=== PATIENT | male | born 2000 | race Two or more races ===

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

== ENCOUNTER 2021-12-27 12:55 | Emergency (ER) | payer MEDICAID ==
[~2021-12-27] VITALS: Ht 172.7 cm; Wt 63.5 kg
[~2021-12-27 12:55] MED LIST: DIVA500T2 PO
[2021-12-27] MEDS ORDERED: SODIUM CHLORIDE 0.9% 1,000 ML IVB ONE (13:15)
[2021-12-27 13:52] LABS: Basophils # (auto) 0.1 10 ^3/uL (0-0.2); Basophils % (auto) 1.8 % (0.0-2.0); Eosinophils # (auto) 0 10 ^3/uL (0-0.8); Eosinophils % (auto) 0.1 % (0.0-7.0); Hematocrit 40.6 % (41.0-53.0); Hemoglobin 14.2 g/dL (13.5-17.5); Lymphocytes # (auto) 0.9 10 ^3/uL (0.4-5.4); Lymphocytes % (auto) 12.1 % (10.0-50.0); Mean Corpuscular Hemoglobin 28.3 pg (28.0-32.0); Mean Corpuscular Volume 80.8 fL (80.0-100.0); Monocytes # (auto) 0.5 10 ^3/uL (0-1.3); Monocytes % (auto) 7.4 % (0.0-12.0); Neutrophils # (auto) 5.6 10 ^3/uL (1.6-8.6); Neutrophils % (auto) 78.6 % (37.0-80.0); Nucleated Red Blood Cells % 0.1 %; Red Blood Cells 5.03 10^6/uL (4.5-5.90); Red Cell Distribution Width 14.2 % (11.8-14.3); White Blood Cell 7.1 10^3/uL (4.4-10.8)
[2021-12-27 14:15] LABS: Alanine Aminotransferase 15 U/L (16-61); Anion Gap 7 (5-15); Aspartate Aminotransferase 22 U/L (15-37); BUN/Creatinine Ratio 3.9; Blood Urea Nitrogen 4 mg/dL (7-18); Calcium 8.6 mg/dL (8.5-10.1); Carbon Dioxide 28 mmol/L (21-32); Chloride 107 mmol/L (98-107); GFR African American 119 mL/min; GFR Non-African American 98 mL/min; Glucose 85 mg/dL (74-106); Potassium 3.7 mmol/L (3.5-5.1); Sodium 142 mmol/L (136-145)
[2021-12-27 14:18] LABS: Alkaline Phosphatase 56 U/L (45-117); Bilirubin, Total 0.9 mg/dL (0.2-1.0); Total Protein 7.6 g/dL (6.4-8.2)
[2021-12-27 14:19] LABS: Blood Alcohol < 3.0 mg/dL (0-5)
[2021-12-27 14:39] VITALS: BP 110/76
[2021-12-27] MEDS ORDERED: DIVA500T2 PO (14:47)
== END 2021-12-27 15:02 | disposition home or self-care (01) ==
LOC: EDUNIT# 12:55 → ER 12:55 → EDBD 12:55 → ER 15:02
DX: G40.909 Epilepsy, unspecified, not intractable, without status epilepticus (principal); R51.9 Headache, unspecified
CPT/HCPCS: 36415; 70450; 80053; 80320; 85025; 93005; 96360; 99285; J7030

== ENCOUNTER 2024-04-11 12:08 | Inpatient (IN) | payer MEDICAID, OTHER ==
[~2024-04-11] VITALS: Ht 175.3 cm; Wt 73.5 kg
[~2024-04-11 12:08] MED LIST changes: +DIVA-91 PO; -DIVA500T2 PO
[2024-04-11] MEDS: SODIUM CHLORIDE 0.9% 1,000 ML IV ONE (13:05)
[2024-04-11] MEDS: levETIRAcetam 1000 mg/100ml 100 ML IV ONE (13:05)
[2024-04-11 13:56] LABS: Basophils # (auto) 0.1 10 ^3/uL (0-0.2); Basophils % (auto) 0.8 % (0.0-2.0); Eosinophils # (auto) 0.1 10 ^3/uL (0-0.8); Eosinophils % (auto) 0.6 % (0.0-7.0); Hematocrit 44.8 % (41.0-53.0); Hemoglobin 15.5 g/dL (13.5-17.5); Lymphocytes # (auto) 1.4 10 ^3/uL (0.4-5.4); Lymphocytes % (auto) 9.4 % (10.0-50.0); Mean Corpuscular Hemoglobin 30.3 pg (28.0-32.0); Mean Corpuscular Hgb Conc. 34.5 g/dL (32.0-36.0); Mean Corpuscular Volume 87.7 fL (80.0-100.0); Monocytes # (auto) 0.7 10 ^3/uL (0-1.3); Monocytes % (auto) 4.4 % (0.0-12.0); Neutrophils # (auto) 12.7 10 ^3/uL (1.6-8.6); Neutrophils % (auto) 84.8 % (37.0-80.0); Nucleated Red Blood Cells % 0.1 %; Platelet Count (auto) 297 10^3/uL (140-450); Red Blood Cells 5.11 10^6/uL (4.5-5.90); Red Cell Distribution Width 14.5 % (11.8-14.3); White Blood Cell 14.9 10^3/uL (4.4-10.8)
[2024-04-11 13:59] LABS: Chloride 107 mmol/L (98-107); Potassium 4.2 mmol/L (3.5-5.1); Sodium 140 mmol/L (136-145)
[2024-04-11 14:00] LABS: Anion Gap 6 (5-15); Carbon Dioxide 27 mmol/L (20-30)
[2024-04-11 14:01] LABS: Calcium 8.8 mg/dL (8.7-10.4)
[2024-04-11 14:05] LABS: Glucose 96 mg/dL (74-106)
[2024-04-11 14:06] LABS: BUN/Creatinine Ratio 11.8 (10.0-20.0); Blood Urea Nitrogen 10 mg/dL (9-23)
[2024-04-11] MEDS ORDERED: ONDANSETRON HCL 4 MG/2 ML VIAL IV PRN (15:30)
[2024-04-11] MEDS ORDERED: LORazepam 2MG/ML-1ML VIAL IV PRN (15:30)
[2024-04-11 17:41] VITALS: BP 123/87; PULSE 77; RESP 16; TEMP 97.4; O2SAT 97
[2024-04-11 20:00] VITALS: PULSE 71; RESP 18; O2SAT 98
[2024-04-11] MEDS: levETIRAcetam 500 MG TAB PO SCH (20:59)
[2024-04-11 21:00] VITALS: BP 124/80; PULSE 71; RESP 18; TEMP 98.2; O2SAT 98
[2024-04-11] MEDS: ACETAMINOPHEN 325 MG TAB PO PRN (21:08)
[2024-04-12 05:00] VITALS: BP 110/74; PULSE 70; RESP 16; TEMP 97.9; O2SAT 100
[2024-04-12 06:15] LABS: Chloride 104 mmol/L (98-107); Potassium 4.2 mmol/L (3.5-5.1); Sodium 137 mmol/L (136-145)
[2024-04-12 06:16] LABS: Anion Gap 4 (5-15); Carbon Dioxide 29 mmol/L (20-30)
[2024-04-12 06:17] LABS: Calcium 9.1 mg/dL (8.7-10.4)
[2024-04-12 06:21] LABS: BUN/Creatinine Ratio 9.7 (10.0-20.0); Blood Urea Nitrogen 9 mg/dL (9-23); Glucose 110 mg/dL (74-106)
[2024-04-12 07:40] LABS: Basophils # (auto) 0.1 10 ^3/uL (0-0.2); Basophils % (auto) 1.1 % (0.0-2.0); Eosinophils # (auto) 0.2 10 ^3/uL (0-0.8); Eosinophils % (auto) 2.3 % (0.0-7.0); Hematocrit 44.9 % (41.0-53.0); Hemoglobin 15.3 g/dL (13.5-17.5); Lymphocytes # (auto) 2.2 10 ^3/uL (0.4-5.4); Lymphocytes % (auto) 22.3 % (10.0-50.0); Mean Corpuscular Hemoglobin 30.2 pg (28.0-32.0); Mean Corpuscular Volume 88.9 fL (80.0-100.0); Monocytes # (auto) 0.6 10 ^3/uL (0-1.3); Monocytes % (auto) 6.5 % (0.0-12.0); Neutrophils # (auto) 6.8 10 ^3/uL (1.6-8.6); Neutrophils % (auto) 67.8 % (37.0-80.0); Nucleated Red Blood Cells % 0.1 %; Platelet Count (auto) 305 10^3/uL (140-450); Red Blood Cells 5.06 10^6/uL (4.5-5.90); Red Cell Distribution Width 14.6 % (11.8-14.3)
[2024-04-12 09:00] VITALS: BP 122/84; PULSE 85; RESP 18; TEMP 98.5; O2SAT 99
[2024-04-12 13:00] VITALS: BP 118/75; PULSE 86; RESP 20; TEMP 97.8; O2SAT 94
[2024-04-12 17:13] VITALS: BP 119/79; PULSE 63; RESP 20; TEMP 98; O2SAT 98
[2024-04-12 21:00] VITALS: BP 127/95; PULSE 97; RESP 20; TEMP 98.2; O2SAT 95
[2024-04-13 01:00] VITALS: BP 133/69; PULSE 80; RESP 20; TEMP 98.1; O2SAT 95
[2024-04-13 05:00] VITALS: BP 129/54; PULSE 57; RESP 20; TEMP 97.4; O2SAT 99
[2024-04-13 05:53] LABS: Urine Bacteria None Seen /hpf (None Seen)
[2024-04-13 06:05] LABS: Urine Blood Negative /uL (Negative); Urine Clarity Clear (Clear); Urine Color Light-Yellow (Yellow); Urine Protein, UAD Negative (Negative); Urine Specific Gravity 1.014 (1.001-1.035); Urine Urobilinogen Normal (Negative); Urine WBC 2 /hpf (0 - 3)
[2024-04-13 06:22] LABS: Basophils # (auto) 0 10 ^3/uL (0-0.2); Basophils % (auto) 0.5 % (0.0-2.0); Eosinophils # (auto) 0.2 10 ^3/uL (0-0.8); Eosinophils % (auto) 2.2 % (0.0-7.0); Hematocrit 45.9 % (41.0-53.0); Hemoglobin 15.9 g/dL (13.5-17.5); Mean Corpuscular Hemoglobin 30.2 pg (28.0-32.0); Mean Corpuscular Hgb Conc. 34.7 g/dL (32.0-36.0); Mean Corpuscular Volume 87.1 fL (80.0-100.0); Monocytes # (auto) 0.7 10 ^3/uL (0-1.3); Monocytes % (auto) 7.5 % (0.0-12.0); Neutrophils % (auto) 67.8 % (37.0-80.0); Nucleated Red Blood Cells % 0.1 %; Platelet Count (auto) 307 10^3/uL (140-450); Red Blood Cells 5.27 10^6/uL (4.5-5.90); Red Cell Distribution Width 14.3 % (11.8-14.3); White Blood Cell 8.9 10^3/uL (4.4-10.8)
[2024-04-13 06:26] LABS: Amphetamine Screen, Urine Neg (NEGATIVE); Barbiturate Scree,Urine Neg (NEGATIVE); Benzodiazephine Screen, Urine Neg (NEGATIVE); Cocaine Screen, Urine Neg (NEGATIVE)
[2024-04-13 06:29] LABS: Opiate Scree,Urine Neg (NEGATIVE)
[2024-04-13 06:30] LABS: Cannabinoid Screen, Urine Pos (NEGATIVE); Phencyclidine Screen, Urine Neg (NEGATIVE)
[2024-04-13 06:31] LABS: Anion Gap 5 (5-15); Carbon Dioxide 28 mmol/L (20-30); Chloride 103 mmol/L (98-107); Potassium 4.1 mmol/L (3.5-5.1); Sodium 136 mmol/L (136-145)
[2024-04-13 06:33] LABS: Calcium 9.6 mg/dL (8.7-10.4)
[2024-04-13 06:37] LABS: BUN/Creatinine Ratio 9.8 (10.0-20.0); Blood Urea Nitrogen 8 mg/dL (9-23); Glucose 89 mg/dL (74-106)
[2024-04-13 10:24] VITALS: BP 117/75; PULSE 69; RESP 16; TEMP 98.2; O2SAT 98
[2024-04-13] MEDS ORDERED: LEVE500T40 PO (12:36)
[2024-04-13 13:15] VITALS: BP 124/67; PULSE 61; RESP 16; TEMP 98.1; O2SAT 98
[2024-04-13 13:38] VITALS: BP 124/67; PULSE 61; RESP 16; TEMP 98.1; O2SAT 98
== END 2024-04-13 15:08 | disposition home or self-care (01) | DRG 53 ==
LOC: EDBD 12:08 → ER 12:08 → OVERFLOW 15:37 → TELE-E-ADS 17:47
PROVIDERS: ADMIT Family Medicine; ATTEND Internal Medicine Geriatric Medicine
DX: G40.409 Other generalized epilepsy and epileptic syndromes, not intractable, without status epilepticus (principal); F12.10 Cannabis abuse, uncomplicated; R32 Unspecified urinary incontinence; Z91.128 Patient's intentional underdosing of medication regimen for other reason; Z91.199 Patient's noncompliance with other medical treatment and regimen due to unspecified reason; Z71.51 Drug abuse counseling and surveillance of drug abuser
CPT/HCPCS: 36415; 70450; 80048; 80307; 81001; 82306; 82607; 84146; 85025; 87081; 96365; 99291; G0378

== ENCOUNTER 2024-05-26 13:13 | Emergency (ER) | payer OTHER ==
[~2024-05-26] VITALS: Ht 180.3 cm; Wt 77.2 kg
[~2024-05-26 13:13] MED LIST changes: -DIVA-91 PO; +LEVE500T40 PO
[2024-05-26 13:49] VITALS: RESP 16
[2024-05-26 14:53] LABS: Basophils # (auto) 0.1 10 ^3/uL (0-0.2); Basophils % (auto) 1.2 % (0.0-2.0); Eosinophils # (auto) 0.3 10 ^3/uL (0-0.8); Eosinophils % (auto) 3.7 % (0.0-7.0); Hematocrit 46.2 % (41.0-53.0); Hemoglobin 16.2 g/dL (13.5-17.5); Lymphocytes # (auto) 1.6 10 ^3/uL (0.4-5.4); Lymphocytes % (auto) 20.7 % (10.0-50.0); Mean Corpuscular Hemoglobin 30.5 pg (28.0-32.0); Mean Corpuscular Hgb Conc. 35.1 g/dL (32.0-36.0); Mean Corpuscular Volume 86.7 fL (80.0-100.0); Monocytes # (auto) 0.6 10 ^3/uL (0-1.3); Monocytes % (auto) 7.7 % (0.0-12.0); Neutrophils # (auto) 5.2 10 ^3/uL (1.6-8.6); Neutrophils % (auto) 66.7 % (37.0-80.0); Nucleated Red Blood Cells % 0.2 %; Platelet Count (auto) 380 10^3/uL (140-450); Red Blood Cells 5.33 10^6/uL (4.5-5.90); Red Cell Distribution Width 14.3 % (11.8-14.3); White Blood Cell 7.8 10^3/uL (4.4-10.8)
[2024-05-26 15:00] VITALS: PULSE 76; RESP 11; O2SAT 95
[2024-05-26 15:05] LABS: Chloride 103 mmol/L (98-107); Potassium 3.3 mmol/L (3.5-5.1); Sodium 140 mmol/L (136-145)
[2024-05-26 15:06] LABS: Anion Gap 12 (5-15); Calcium 9.8 mg/dL (8.7-10.4); Carbon Dioxide 25 mmol/L (20-31)
[2024-05-26 15:11] LABS: Blood Alcohol 140.8 mg/dL (<10); Glucose 84 mg/dL (74-106)
[2024-05-26 15:12] LABS: BUN/Creatinine Ratio 5.7 (10.0-20.0); Blood Urea Nitrogen < 5 mg/dL (9-23)
[2024-05-26] MEDS: LORazepam 2MG/ML-1ML VIAL IV ONE (15:30)
[2024-05-26 16:00] VITALS: BP 117/75; PULSE 88; RESP 16; O2SAT 94
== END 2024-05-26 18:10 | disposition home or self-care (01) ==
LOC: ER 13:16
DX: R56.9 Unspecified convulsions (principal)
CPT/HCPCS: 36415; 70450; 80048; 80320; 82962; 85025; 96374; 99285; J2060; 99291

== ENCOUNTER 2024-06-16 13:34 | Emergency (ER) | payer OTHER ==
[~2024-06-16] VITALS: Ht 180.3 cm; Wt 73.0 kg
[2024-06-16 13:37] VITALS: BP 140/97; PULSE 100; RESP 18; O2SAT 96
[2024-06-16 14:13] LABS: Basophils # (auto) 0.1 10 ^3/uL (0-0.2); Basophils % (auto) 0.7 % (0.0-2.0); Eosinophils # (auto) 0.1 10 ^3/uL (0-0.8); Eosinophils % (auto) 0.9 % (0.0-7.0); Hematocrit 50.6 % (41.0-53.0); Lymphocytes # (auto) 1.6 10 ^3/uL (0.4-5.4); Lymphocytes % (auto) 13.7 % (10.0-50.0); Mean Corpuscular Hemoglobin 29.4 pg (28.0-32.0); Mean Corpuscular Hgb Conc. 33.7 g/dL (32.0-36.0); Mean Corpuscular Volume 87.4 fL (80.0-100.0); Monocytes # (auto) 0.7 10 ^3/uL (0-1.3); Monocytes % (auto) 6.1 % (0.0-12.0); Neutrophils # (auto) 9.1 10 ^3/uL (1.6-8.6); Neutrophils % (auto) 78.6 % (37.0-80.0); Platelet Count (auto) 395 10^3/uL (140-450); Red Blood Cells 5.79 10^6/uL (4.5-5.90); Red Cell Distribution Width 14.3 % (11.8-14.3); White Blood Cell 11.5 10^3/uL (4.4-10.8)
[2024-06-16] MEDS: levETIRAcetam 1000 mg/100ml 100 ML IV ONE (14:25)
[2024-06-16] MEDS: SODIUM CHLORIDE 0.9% 1,000 ML IV ONE (14:25)
[2024-06-16] MEDS: ONDANSETRON HCL 4 MG/2 ML VIAL IV ONE (14:25)
[2024-06-16 14:31] LABS: Alanine Aminotransferase 30 U/L (7-40); Alkaline Phosphatase 85 U/L (46-116); Anion Gap 10 (5-15); Aspartate Aminotransferase 47 U/L (13-40); Blood Alcohol < 3.0 mg/dL (<10); Calcium 9.9 mg/dL (8.7-10.4); Carbon Dioxide 23 mmol/L (20-31); Chloride 105 mmol/L (98-107); Glucose 114 mg/dL (74-106); Potassium 4.1 mmol/L (3.5-5.1); Sodium 138 mmol/L (136-145)
[2024-06-16 14:32] LABS: Albumin 4.8 g/dL (3.2-4.8); Bilirubin, Total 0.8 mg/dL (0.2-1.0); Total Protein 8.2 g/dL (5.7-8.2)
[2024-06-16 15:04] LABS: BUN/Creatinine Ratio 5.2 (10.0-20.0); Blood Urea Nitrogen < 5 mg/dL (9-23)
== END 2024-06-16 17:37 | disposition home or self-care (01) ==
LOC: ER 13:34
DX: G40.909 Epilepsy, unspecified, not intractable, without status epilepticus (principal); F10.10 Alcohol abuse, uncomplicated; R42 Dizziness and giddiness; R53.1 Weakness
CPT/HCPCS: 36415; 80053; 80320; 82542; 85025; 96365; 96375; 99284; J1953; J2405; J7030

== ENCOUNTER 2024-06-23 20:35 | Emergency (ER) | payer OTHER ==
[~2024-06-23] VITALS: Ht 180.3 cm; Wt 73.0 kg
--- NOTE | 2024-06-23 21:08 | ED.PDOC ---
Back pain HPI HPI Comments 23-year-old male presents to ER with complaints of ribcage pain x2 days. Patient reports he started experiencing bilateral upper/lower ribcage pain two days ago s/p "getting tackled while playing football". Denies head injury/LOC. Rates his current pain a 10/10 to bilateral upper and lower ribcage and notes he has been taking ibuprofen for his pain with slight relief. Patient presents to ER ambulatory on arrival, with steady gait, in no distress and states his pain is worse with movement and better with rest. Denies shortness of breath, nausea/vomiting, chest pain, abdominal pain or any further symptoms/complaints Chief Complaint: Rib Pain Time Seen by MD: 20:49 Primary Care Provider: NONE Reviewed Notes: Nurses Notes, Medications, Allergies Allergies: Coded Allergies: NO KNOWN ALLERGIES (Unverified , 12/04/16) Home Meds Active Scripts Ibuprofen (Ibuprofen) 800 Mg Tab, 1 TAB PO TID PRN, #30 TAB 0 Refills Prov:MILTON URENA 06/23/24 Levetiracetam (Keppra) 500 Mg Tab, 1000 MG PO BID for 30 Days, #120 TAB Prov:MARIA DEL CARMEN PINEDO 04/13/24 Information Source: Patient Mode of Arrival: Ambulatory Past Medical History PAST MEDICAL HISTORY: Seizures Surgical History: Denies all surgeries Family History Family History (Other): Seizures Social History Smoker: Non-Smoker Alcohol: Occasionally Drugs: Marijuana Lives In: Home Constitutional: denies: chills, diaphoresis, fatigue, fever, malaise, sweats, weakness, others EENTM: denies: blurred vision, double vision, ear bleeding, ear discharge, ear drainage, ear pain, ear ringing, eye pain, eye redness, hearing loss, mouth pain, mouth swelling, nasal discharge, nose bleeding, nose congestion, nose pain, photophobia, tearing, throat pain, throat swelling, voice changes, others Respiratory: denies: cough, hemoptysis, orthopnea, SOB at rest, shortness of breath, SOB with excertion, stridor, wheezing, others Cardiovascular: denies: chest pain, dizzy spells, diaphoresis, Dyspnea on exertion, edema, irregular heart beat, left arm pain, lightheadedness, palpitations, PND, syncope, others Gastrointestinal: denies: abdomen distended, abdominal pain, blood streaked bowels, constipated, diarrhea, dysphagia, difficulty swallowing, hematemesis, melena, nausea, poor appetite, poor fluid intake, rectal bleeding, rectal pain, vomiting, others Genitourinary: denies: burning, dysuria, flank pain, frequency, hematuria, incontinence, penile discharge, penile sore, pain, testicle pain, testicle swelling, urgency, others Neurological: denies: dizziness, fainting, headache, left sided numbness, left sided weakness, numbness, paresthesia, pre-existing deficit, right sided numbness, right sided weakness, seizure, speech problems, tingling, tremors, weakness, others Musculoskeletal: reports: others (As stated in HPI) Integumetry: denies: bruises, change in color, change in hair/nails, dryness, laceration, lesions, lumps, rash, wounds, others Allergic/Immunocompromised: denies: Difficulty Healing, Frequent Infections, Hives, Itching, others Hematologic/Lymphatic: denies: anemia, blood clots, easy bleeding, easy bruising, swollen glands, others Endocrine: denies: excessive hunger, excessive sweating, excessive thirst, excessive urination, flushing, intolerance to cold, intolerance to heat, unexplained weight gain, unexplained weight loss, others Psychiatric: denies: anxiety, bipolar disorder, depression, hopeless, panic disorder, schizophrenia, sleepless, suicidal, others Physical Exam General Appearance: No Apparent Distress HEENT: Normal ENT Inspection, PERRL/EOMI, Pharynx Normal, TMs Normal Neck: Full Range of Motion, Non-Tender, Normal, Normal Inspection Respiratory: Decreased Breath Sounds, Lungs Clear, No Accessory Muscle Use, No Respiratory Distress, Normal Breath Sounds, Other (Slight TTP to bilateral upper rib cage and bilateral lower posterior ribcage noted. Small abrasion also noted to substernal chest wall. No further skin changes noted) Cardiovascular: No Murmur, No Gallop, Regular Rate/Rhythm Breast Exam: Deferred Gastrointestinal: Non Tender, No Pulsatile Mass, Soft Genitalia: Deferred Pelvic: Deferred Rectal: Deferred Extremities: Normal capillary refill, Normal range of motion Neurologic: Alert, wharf operator II-XII nml as Tested, No Motor Deficits, Normal Affect, Normal Mood, No Sensory Deficits Cerebellar Function: Normal Reflexes: Normal Skin: Dry, Warm Peripheral Pulses: 2+ Radial (R), 2+ Radial (L), 2+ Brachial (R), 2+ Brachial (L) Lymphatic: No Adenopathy Was a procedure done? Was a procedure done?: No Sedation Sedation?: No Back Pain Differential Dx Differential Diagnosis: AAA, Fracture, Other (Pneumothorax, [place]) X-Ray, Labs, Meds, VS Vital Signs Date Time Temp Pulse Resp B/P (MAP) Pulse Ox O2 Delivery O2 Flow Rate FiO2 06/23/24 21:10 86 16 98 Room Air 06/23/24 21:10 98.5 85 16 137/94 (108) 98 98.5 06/23/24 20:48 98.5 85 19 164/94 (117) 100 Current Medications Medications (Trade) Dose Ordered Sig/[place] Route Start Time Stop Time Status Last Admin Ketorolac Tromethamine (Toradol Injection) 60 mg ONCE ONCE IM 06/23/24 21:15 06/23/24 21:16 DC 06/23/24 21:28 PATIENT: TIM CRUZ MACCT: [id number]: [id number] : 2000 LOC: ER ROOM / BED: / AGE / SEX: 23 / M ADM STATUS: REG ER SERVICE 04 ORDERING PHYSICIAN: MILTON URENA PROCEDURE(s): CXR2 - CHEST TWO VIEWS ROUTINE REASON: bilateral rib cage pain ORDER NUMBER(s): [id number], ACCESSION NUMBER(s): [id number] XY CHEST TWO VIEWS ROUTINE CLINICAL HISTORY: bilateral rib cage pain COMPARISON: None TECHNIQUE: Frontal and lateral view of the chest was obtained FINDINGS: Lines and Tubes: None Lungs: No focal consolidation. Pleura: No effusion. No pneumothorax. Cardiomediastinal contours: Unremarkable Bones: No acute osseous abnormality. IMPRESSION: No acute cardiopulmonary disease. ATED BY: DANIEL HEBERT DO DICTATED DATE/TIME: 06/23/242137 SIGNED BY: DANIEL HEBERT DO SIGNED DATE/TIME: 06/23/242137 CC: Chest x-ray reviewed Toradol 60 mg IM ordered Patient reported improvement in symptoms and in no distress prior to discharge Cannabis cessation discussed and advised Advised on rest/ no strenuous activity Advised to follow up with PCP in 1-2 days Patient verbalized understanding and agreeable with current plan of care Advised to return to ER immediately if symptoms worsen Images Reviewed?: Images reviewed and evaluated by me Time of 1ST Reevaluation: 20:54 Reevaluation 1ST: N/A Patient Education/Counseling: Diagnosis, Treatment, Prognosis, Need For Follow Up Family Education/Counseling: No Family Present Departure 1 Departure Time of Disposition: 21:12 Impression: Primary Impression: Sprain, ribs Qualified Codes: S23.41XA - Sprain of ribs, initial encounter Additional Impression: Abrasion of chest wall Qualified Codes: S20.319A - Abrasion of unspecified front wall of thorax, initial encounter Disposition: HOME / SELF CARE / HOMELESS Condition: Stable e-Prescriptions Ibuprofen (Ibuprofen) 800 Mg Tab 1 TAB PO TID PRN, #30 TAB 0 Refills Prov: MILTON URENA 06/23/24 Discharged With: Self Critical Care Note Critical Care Time?: No Stability Stability form required: No Heart Score Heart Score: Heart Score Response (Comments) Value History N/A 0 EKG N/A 0 Age N/A 0 Risk Factors N/A 0 Troponin N/A 0 Total 0 MILTON URENA Jun 23, 2024 21:08
[2024-06-23 21:10] VITALS: BP 137/94; PULSE 86; RESP 16; TEMP 98.5; O2SAT 98
[2024-06-23] MEDS ORDERED: IBUP-1456 PO (21:14)
[2024-06-23] MEDS: KETOROLAC TROMETH 60MG/2ML VIAL IM ONE (21:28)
--- NOTE | 2024-06-23 21:41 | DVH ---
XY CHEST TWO VIEWS ROUTINE CLINICAL HISTORY: bilateral rib cage pain COMPARISON: None TECHNIQUE: Frontal and lateral view of the chest was obtained FINDINGS: Lines and Tubes: None Lungs: No focal consolidation. Pleura: No effusion. No pneumothorax. Cardiomediastinal contours: Unremarkable Bones: No acute osseous abnormality. IMPRESSION: No acute cardiopulmonary disease.
== END 2024-06-23 21:47 | disposition home or self-care (01) ==
LOC: ER 20:35
DX: S23.41XA Sprain of ribs, initial encounter (principal); S20.319A Abrasion of unspecified front wall of thorax, initial encounter; F12.90 Cannabis use, unspecified, uncomplicated; Y93.61 Activity, american tackle football; Y92.89 Other specified places as the place of occurrence of the external cause; Y99.8 Other external cause status
CPT/HCPCS: 71046; 96372; 99283; J1885

== ENCOUNTER 2024-07-15 13:22 | Emergency (ER) | payer OTHER ==
[~2024-07-15] VITALS: Ht 180.3 cm; Wt 68.6 kg
[~2024-07-15 13:22] MED LIST changes: +IBUP-1456 PO
--- NOTE | 2024-07-15 14:26 | DVH ---
CLINICAL INDICATION: punched a pole TECHNIQUE: 3 radiographic views of the right knee and were obtained. Comparison: None FINDINGS/IMPRESSION: There is no evidence of acute fracture or dislocation. The visualized joint space is well maintained. The alignment is anatomical. There is no radiopaque foreign body.
[2024-07-15] MEDS ORDERED: IBUP-1456 PO (15:11)
[2024-07-15] MEDS ORDERED: MUPI2CRE17 EX (15:11)
[2024-07-15] MEDS ORDERED: CEPH500C PO (15:11)
--- NOTE | 2024-07-15 15:12 | ED.PDOC ---
Musculoskeletal HPI Comments 23 year old male presents for possible fracture to the right hand Onset: 2 days ago Hit a pole. Still has full range of motion. Denies numbness tingling to the affected extremity Chief Complaint: Upper Extremity Time Seen by MD: 13:49 Primary Care Provider: NONE Reviewed Notes: Nurses Notes, Medications, Allergies Allergies: Coded Allergies: NO KNOWN ALLERGIES (Unverified , 12/04/16) Home Meds Active Scripts Mupirocin Calcium (Topical) (MUPIROCIN) 2 % Cre, 1 APPLIC EX BID for 7 Days, #15 GRAMS 0 Refills Prov:JENN TOPETE DEPARTMENT CLERK 07/15/24 Ibuprofen (Ibuprofen) 800 Mg Tab, 1 TAB PO TID for 7 Days, #21 TAB 0 Refills Prov:JENN TOPETE DEPARTMENT CLERK 07/15/24 Cephalexin Monohydrate (Cephalexin) 500 Mg Cap, 1 CAP PO QID for 7 Days, #28 CAP 0 Refills Prov:JENN TOPETE NP 07/15/24 Ibuprofen (Ibuprofen) 800 Mg Tab, 1 TAB PO TID PRN, #30 TAB 0 Refills Prov:MILTON URENA 06/23/24 Levetiracetam (Keppra) 500 Mg Tab, 1000 MG PO BID for 30 Days, #120 TAB Prov:MARIA DEL CARMEN PINEDO RESIDENT 04/13/24 Information Source: Patient Mode of Arrival: Ambulatory Past Medical History PAST MEDICAL HISTORY: Seizures Surgical History: Denies all surgeries Family History Family History (Other): Seizures Social History Smoker: Non-Smoker Alcohol: Occasionally Drugs: Marijuana Lives In: Home All Other Systems: Reviewed and Negative (Per HPI) Physical Exam General Appearance: No Apparent Distress, Normal HEENT: Normal ENT Inspection, Pharynx Normal, TMs Normal Neck: Full Range of Motion, Non-Tender, Normal, Normal Inspection Respiratory: Chest Non-Tender, Lungs Clear, No Accessory Muscle Use, No Respiratory Distress, Normal Breath Sounds Cardiovascular: No Edema, No JVD, No Murmur, No Gallop, Normal Peripheral Pulses, Regular Rate/Rhythm Breast Exam: Deferred Gastrointestinal: No Organomegaly, Non Tender, No Pulsatile Mass, Normal Bowel Sounds, Soft Genitalia: Deferred Pelvic: Deferred Rectal: Deferred Extremities: No calf tenderness, Normal capillary refill, Normal inspection, Normal range of motion, Non-tender, No pedal edema Musculoskeletal : Apperance: Normal Neurologic: Alert, outside solar sales consultant II-XII nml as Tested, No Motor Deficits, Normal Affect, Normal Mood, No Sensory Deficits Cerebellar Function: Normal Reflexes: Normal Skin: Dry, Normal Color, Warm Lymphatic: No Adenopathy Was a procedure done? Was a procedure done?: No Images 1 - Linear abrasion. 1 cm. Hemostasis obtained. No surrounding erythema. No soft tissue swelling. Differential Diagnosis EXT Differential Diagnosis: Sprain X-Ray, Labs, Meds, VS Vital Signs Date Time Temp Pulse Resp B/P (MAP) Pulse Ox O2 Delivery O2 Flow Rate FiO2 07/15/24 15:34 106 16 97 Room Air 07/15/24 15:34 98.3 106 16 98/76 (83) 97 98.3 07/15/24 13:39 99.7 112 20 99/76 (84) 96 Current Medications Medications (Trade) Dose Ordered Sig/[place] Route Start Time Stop Time Status Last Admin Ketorolac Tromethamine (Toradol Injection) 30 mg ONCE ONCE IM 07/15/24 15:15 07/15/24 15:21 DC 07/15/24 15:59 PATIENT: TIM CRUZ MACCT: [id number]: [id number] : 2000 LOC: ER ROOM / BED: / AGE / SEX: 23 / M ADM STATUS: REG ER SERVICE 1349 ORDERING PHYSICIAN: JENN TOPETE NP PROCEDURE(s): RHAN - R HAND 3 VIEW XRAY REASON: punched a pole ORDER NUMBER(s): [id number], ACCESSION NUMBER(s): [id number] CLINICAL INDICATION: punched a pole TECHNIQUE: 3 radiographic views of the right knee and were obtained. Comparison: None FINDINGS/IMPRESSION: There is no evidence of acute fracture or dislocation. The visualized joint space is well maintained. The alignment is anatomical. There is no radiopaque foreign body. ATED BY: ROCHELLE GOMEZ Jr., DO DICTATED DATE/TIME: 07/15/241423 SIGNED BY: ROCHELLE GOMEZ Jr., SIGNED DATE/TIME: 07/15/241423 CC: X-Ray, Labs, Meds, VS Comment History and examination consistent of muscular injury X-rays ordered, read by radiologist and reviewed by me Take IBU 600 w/ food as needed for pain Recommended heat therapy Reviewed RICE management Avoid heavy lifting or strenuous activity Recommended range of motion exercises and limit heavy activity for 1 week If no improvement advised patient to return to the emergency department for follow-up. Discussed possibility of a occult fracture Time of 1ST Reevaluation: 15:09 Reevaluation 1ST: Improved Patient Education/Counseling: Diagnosis, Treatment Family Education/Counseling: Diagnosis, Treatment Departure 1 Departure Time of Disposition: 15:12 Impression: Primary Impression: Sprain of right hand Qualified Codes: S63.91XA - Sprain of unspecified part of right wrist and hand, initial encounter Disposition: HOME / SELF CARE / HOMELESS Condition: Stable e-Prescriptions Mupirocin Calcium (Topical) (MUPIROCIN) 2 % Cre 1 APPLIC EX BID for 7 Days, #15 GRAMS 0 Refills Prov: JENN TOPETE NP 07/15/24 Ibuprofen (Ibuprofen) 800 Mg Tab 1 TAB PO TID for 7 Days, #21 TAB 0 Refills Prov: JENN TOPETE NP 07/15/24 Cephalexin Monohydrate (Cephalexin) 500 Mg Cap 1 CAP PO QID for 7 Days, #28 CAP 0 Refills Prov: JENN TOPETE NP 07/15/24 Critical Care Note Critical Care Time?: No Stability Stability form required: No Heart Score Heart Score: Heart Score Response (Comments) Value History N/A 0 EKG N/A 0 Age N/A 0 Risk Factors N/A 0 Troponin N/A 0 Total 0 JENN TOPETE NP Jul 15, 2024 15:12
[2024-07-15 15:34] VITALS: BP 98/76; PULSE 106; RESP 16; TEMP 98.3; O2SAT 97
[2024-07-15] MEDS: KETOROLAC TROMETH 30 MG/ML 1ML VIAL IM ONE (15:59)
== END 2024-07-15 16:10 | disposition home or self-care (01) ==
LOC: ER 13:22
DX: S63.8X1A Sprain of other part of right wrist and hand, initial encounter (principal); F15.90 Other stimulant use, unspecified, uncomplicated; Z79.899 Other long term (current) drug therapy; Z79.1 Long term (current) use of non-steroidal anti-inflammatories (NSAID); W22.09XA Striking against other stationary object, initial encounter; Y93.89 Activity, other specified; Y92.89 Other specified places as the place of occurrence of the external cause; Y99.8 Other external cause status
CPT/HCPCS: 73130; 96372; 99283; J1885

== ENCOUNTER 2025-01-04 09:09 | Emergency (ER) | payer OTHER ==
[~2025-01-04] VITALS: Ht 180.3 cm; Wt 73.1 kg
[~2025-01-04 09:09] MED LIST changes: +CEPH500C PO; +MUPI2CRE17 EX
[2025-01-04 09:29] VITALS: BP 120/91; PULSE 82; RESP 15; TEMP 98.2; O2SAT 95
[2025-01-04] MEDS: levETIRAcetam 500 MG TAB PO ONE (09:49)
[2025-01-04 09:58] LABS: Basophils # (auto) 0.1 10 ^3/uL (0-0.2); Eosinophils # (auto) 0.2 10 ^3/uL (0-0.8); Eosinophils % (auto) 2.6 % (0.0-7.0); Hemoglobin 14.8 g/dL (13.5-17.5); Lymphocytes # (auto) 1.1 10 ^3/uL (0.4-5.4); Lymphocytes % (auto) 14.3 % (10.0-50.0); Mean Corpuscular Hemoglobin 29.6 pg (28.0-32.0); Mean Corpuscular Hgb Conc. 34.5 g/dL (32.0-36.0); Monocytes # (auto) 0.4 10 ^3/uL (0-1.3); Monocytes % (auto) 5.9 % (0.0-12.0); Neutrophils # (auto) 5.6 10 ^3/uL (1.6-8.6); Neutrophils % (auto) 76.2 % (37.0-80.0); Nucleated Red Blood Cells % 0.3 %; Platelet Count (auto) 266 10^3/uL (140-450); Red Cell Distribution Width 15.1 % (11.8-14.3); White Blood Cell 7.4 10^3/uL (4.4-10.8)
[2025-01-04 10:06] LABS: Chloride 105 mmol/L (98-107); Potassium 3.9 mmol/L (3.5-5.1); Sodium 139 mmol/L (136-145)
[2025-01-04 10:07] LABS: Anion Gap 10 (5-15); Calcium 9.4 mg/dL (8.7-10.4); Carbon Dioxide 24 mmol/L (20-31)
--- NOTE | 2025-01-04 10:09 | ED.PDOC ---
HPI (NEURO) HPI Comments 24 year old male presents to the ED via EMS with a chief complaint of seizures onset today (01/04/25). PMHx seizures. Per EMS, patient experienced 2 tonic- clonic witnessed seizures by family, lasted about 5 minutes each. Patient states he was drinking a few beers last night, missed Keppra dose this morning, usually takes Keppra 500 mg twice a day. Last seizure was about 1 week ago. Upon EMS arrival, patient was GCS 13, post-ictal, upon ED arrival patient is GCS 15, with no complaints. Denies neck pain, back pain, headache, dizziness, nausea, vomiting, diarrhea. No other symptoms or modifying factors present at this time. Chief Complaint: Seizure Time Seen by MD: 09:15 Primary Care Provider: UNKNOWN Reviewed Notes: Medications, Allergies Information Source: Patient, Emergency Med Personnel Mode of Arrival: EMS Severity: Moderate Timing: Hours Duration: Since onset Prehospital treatment: None Seizure Quality: Tonic-clonic Seizure Location: Generalized Onset: At rest Circumstances: Spontaneous Symptoms: Other Before: Normal After: Normal Mentation History of: Seizure Disorder Associated Signs and Symptoms: None Past Medical History PAST MEDICAL HISTORY: Seizures Surgical History: Denies all surgeries Family History Family History: Reviewed,noncontributory to illness, No family hx of Cancer, No family hx of DM, No family hx of Heart bruce, No family hx of HTN, No family hx ofKidney bruce, No family hx of Liver bruce, No family hx of Lung bruce, No family hx of Stroke Family History (Other): Seizures Social History Smoker: Non-Smoker Alcohol: Occasionally Drugs: Marijuana Lives In: Home Constitutional: denies: chills, diaphoresis, fatigue, fever, malaise, sweats, weakness, others EENTM: denies: blurred vision, double vision, ear bleeding, ear discharge, ear drainage, ear pain, ear ringing, eye pain, eye redness, hearing loss, mouth pain, mouth swelling, nasal discharge, nose bleeding, nose congestion, nose pain, photophobia, tearing, throat pain, throat swelling, voice changes, others Respiratory: denies: cough, hemoptysis, orthopnea, SOB at rest, shortness of breath, SOB with excertion, stridor, wheezing, others Cardiovascular: denies: chest pain, dizzy spells, diaphoresis, Dyspnea on exertion, edema, irregular heart beat, left arm pain, lightheadedness, palpitati ons, PND, syncope, others Gastrointestinal: denies: abdomen distended, abdominal pain, blood streaked bowels, constipated, diarrhea, dysphagia, difficulty swallowing, hematemesis, melena, nausea, poor appetite, poor fluid intake, rectal bleeding, rectal pain, vomiting, others Genitourinary: denies: burning, dysuria, flank pain, frequency, hematuria, incontinence, penile discharge, penile sore, pain, testicle pain, testicle swelling, urgency, others Neurological: reports: seizure; denies: dizziness, fainting, headache, left sided numbness, left sided weakness, numbness, paresthesia, pre-existing deficit, right sided numbness, right sided weakness, speech problems, tingling, tremors, weakness, others Musculoskeletal: denies: back pain, gout, joint pain, joint swelling, muscle pa in, muscle stiffness, neck pain, others Integumetry: denies: bruises, change in color, change in hair/nails, dryness, laceration, lesions, lumps, rash, wounds, others Allergic/Immunocompromised: denies: Difficulty Healing, Frequent Infections, Hives, Itching, others Hematologic/Lymphatic: denies: anemia, blood clots, easy bleeding, easy bruising, swollen glands, others Endocrine: denies: excessive hunger, excessive sweating, excessive thirst, excessive urination, flushing, intolerance to cold, intolerance to heat, unexplained weight gain, unexplained weight loss, others Psychiatric: denies: anxiety, bipolar disorder, depression, hopeless, panic disorder, schizophrenia, sleepless, suicidal, others All Other Systems: Reviewed and Negative Physical Exam General Appearance: No Apparent Distress, Normal HEENT: Normal ENT Inspection, Pharynx Normal, TMs Normal Neck: Full Range of Motion, Non-Tender, Normal, Normal Inspection Respiratory: Chest Non-Tender, Lungs Clear, No Accessory Muscle Use, No Respiratory Distress, Normal Breath Sounds Cardiovascular: No Edema, No JVD, No Murmur, No Gallop, Normal Peripheral Pulses, Regular Rate/Rhythm Breast Exam: Deferred Gastrointestinal: No Organomegaly, Non Tender, No Pulsatile Mass, Normal Bowel Sounds, Soft Genitalia: Deferred Pelvic: Deferred Rectal: Deferred Extremities: No calf tenderness, Normal capillary refill, Normal inspection, Normal range of motion, Non-tender, No pedal edema Musculoskeletal : Apperance: Normal Neurologic: Alert, No Motor Deficits, Normal Affect Cerebellar Function: Normal Reflexes: Normal Skin: Dry, Normal Color, Warm Lymphatic: No Adenopathy Was a procedure done? Was a procedure done?: No Differential Diagnosis (SZ) Seizure: Psychogenic Seizure, Alcohol Withdrawl, Epilepsy-Break Through CVA: Electrolyte Imbalance X-Ray, Labs, Meds, VS Vital Signs Date Time Temp Pulse Resp B/P (MAP) Pulse Ox O2 Delivery O2 Flow Rate FiO2 01/04/25 09:29 98.2 82 15 120/91 (101) 95 98.2 01/04/25 09:29 82 15 95 Room Air* 0 21 01/04/25 09:12 98.7 94 18 144/94 (111) 98 98.7 Lab Test 01/04/25 07:44 Range/Units White Blood Count 7.4 4.4-10.8 10^3/uL Red Blood Count 5.00 4.5-5.90 10^6/uL Hemoglobin 14.8 13.5-17.5 g/dL Hematocrit 43.0 41.0-53.0 % Mean Corpuscular Volume 86.0 80.0-100.0 fL Mean Corpuscular Hemoglobin 29.6 28.0-32.0 pg Mean Corpuscular Hemoglobin Concent 34.5 32.0-36.0 g/dL Red Cell Distribution Width 15.1 H 11.8-14.3 % Platelet Count 266 140-450 10^3/uL Mean Platelet Volume 6.9 6.9-10.8 fL Neutrophils (%) (Auto) 76.2 37.0-80.0 % Lymphocytes (%) (Auto) 14.3 10.0-50.0 % Monocytes (%) (Auto) 5.9 0.0-12.0 % Eosinophils (%) (Auto) 2.6 0.0-7.0 % Basophils (%) (Auto) 1.0 0.0-2.0 % Neutrophils # (Auto) 5.6 1.6-8.6 10 ^3/uL Lymphocytes # (Auto) 1.1 0.4-5.4 10 ^3/uL Monocytes # (Auto) 0.4 0-1.3 10 ^3/uL Eosinophils # (Auto) 0.2 0-0.8 10 ^3/uL Basophils # (Auto) 0.1 0-0.2 10 ^3/uL Nucleated Red Blood Cells 0.3 % Sodium Level 139 136-145 mmol/L Potassium Level 3.9 3.5-5.1 mmol/L Chloride Level 105 98-107 mmol/L Carbon Dioxide Level 24 20-31 mmol/L Anion Gap 10 5-15 Blood Urea Nitrogen 6 L 9-23 mg/dL Creatinine 0.91 0.700-1.30 mg/dL Glomerular Filtration Rate Calc 121 >90 mL/min BUN/Creatinine Ratio 6.6 L 10.0-20.0 Serum Glucose 92 74-106 mg/dL Calcium Level 9.4 8.7-10.4 mg/dL Current Medications Medications (Trade) Dose Ordered Sig/[place] Route Start Time Stop Time Status Last Admin Levetiracetam (Keppra Tablet) 500 mg ONCE ONCE PO 01/04/25 09:45 01/04/25 09:46 DC 01/04/25 09:49 24-year-old male with a known history of epilepsy normally takes Keppra 500 b.i.d. presents here with seizure x2. Denies any headache. On my examination he is well-appearing signing forearms. Nontender CT and L-spine. Doubt acute fracture. Blood work has been done which is largely unremarkable. I have given him a dose of Keppra p.o. here in the ER. He did drink last night which is likely what caused him to seize. However he does state he has a proximally 1 seizure a week. Patient has been advised not to drive. 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 Advised patient to follow up with neurologist and return if symptoms worsen or persist. Time of 1ST Reevaluation: 09:45 Reevaluation 1ST: Unchanged Patient Education/Counseling: Diagnosis, Treatment, Prognosis, Need For Follow Up Family Education/Counseling: No Family Present Departure 1 Departure Time of Disposition: 10:24 Impression: Primary Impression: Epilepsy Qualified Codes: G40.909 - Epilepsy, unspecified, not intractable, without status epilepticus Disposition: 01 HOME / SELF CARE / HOMELESS Condition: Stable Additional Instructions: Follow up with the primary care physician in 2-3 days. Return to the ER if symptoms worsen or persist. It is very important you are compliant with her Keppra dose. Please do not drink alcohol as this can increase your risk of seizures. Discharged With: Self Critical Care Note Critical Care Time?: No Stability Stability form required: No Heart Score Heart Score: Heart Score Response (Comments) Value History N/A 0 EKG N/A 0 Age N/A 0 Risk Factors N/A 0 Troponin N/A 0 Total 0 I personally scribed for ROSITA OHARA MD ([email or web address]) on 01/04/25 at 10:09. Electronically submitted by Marcela Donovan ([email or web address]). ROSITA OHARA MD January 04, 2025 10:09
[2025-01-04 10:12] LABS: BUN/Creatinine Ratio 6.6 (10.0-20.0); Glucose 92 mg/dL (74-106)
[2025-01-04 10:16] LABS: Blood Urea Nitrogen 6 mg/dL (9-23)
== END 2025-01-04 10:40 | disposition home or self-care (01) ==
LOC: EDBD 09:09 → ER 09:09
DX: G40.909 Epilepsy, unspecified, not intractable, without status epilepticus (principal); F10.90 Alcohol use, unspecified, uncomplicated; Y90.9 Presence of alcohol in blood, level not specified; F19.90 Other psychoactive substance use, unspecified, uncomplicated; Z79.899 Other long term (current) drug therapy
CPT/HCPCS: 36415; 80048; 85025

== ENCOUNTER 2025-03-20 12:43 | Inpatient (IN) | payer MEDICAID, OTHER ==
[~2025-03-20] VITALS: Ht 182.9 cm; Wt 73.0 kg
--- NOTE | 2025-03-20 13:14 | ED.PDOC ---
History of Present Illness HPI Comments 24-year-old male brought by paramedics from home because he had seizure episode witnessed by family member. He had two seizures with a few sec interval. Patient did wake up this morning with a seizure while he is trying to get up he had another seizure landing on his face causing bruising of his right eye. Unknown whether he has lost consciousness. He is not taking his Keppra. He does drink alcohol on a daily basis. Denies any symptoms. Chief Complaint: Seizure Time Seen by MD: 12:49 Primary Care Provider: UNKNOWN Reviewed Notes: Nurses Notes, Medications, Allergies Allergies: Coded Allergies: NO KNOWN ALLERGIES (Unverified , 12/04/16) Home Meds Active Scripts Mupirocin Calcium (Topical) (MUPIROCIN) 2 % Cre, 1 APPLIC EX BID for 7 Days, #15 GRAMS 0 Refills Prov:JENN TOPETE [employer]FETERIA ASSOCIATE 07/15/24 Ibuprofen (Ibuprofen) 800 Mg Tab, 1 TAB PO TID for 7 Days, #21 TAB 0 Refills Prov:JENN TOPETE CAFETERIA ASSOCIATE 07/15/24 Cephalexin Monohydrate (Cephalexin) 500 Mg Cap, 1 CAP PO QID for 7 Days, #28 CAP 0 Refills Prov:JENN TOPETE CAFETERIA ASSOCIATE 07/15/24 Ibuprofen (Ibuprofen) 800 Mg Tab, 1 TAB PO TID PRN, #30 TAB 0 Refills Prov:MILTON URENA 06/23/24 Levetiracetam (Keppra) 500 Mg Tab, 1000 MG PO BID for 30 Days, #120 TAB Prov:MARIA DEL CARMEN PINEDO RESIDENT 04/13/24 Information Source: Patient, Emergency Med Personnel Mode of Arrival: EMS Severity: Moderate Timing: Hours Duration: Since onset Past Medical History PAST MEDICAL HISTORY: Seizures Surgical History: Denies all surgeries Family History Family History: Reviewed,noncontributory to illness, No family hx of Cancer, No family hx of DM, No family hx of Heart bruce, No family hx of HTN, No family hx ofKidney bruce, No family hx of Liver bruce, No family hx of Lung bruce, No family hx of Stroke Family History (Other): Seizures Social History Smoker: Non-Smoker Alcohol: Heavy Drugs: Marijuana Lives In: Home Constitutional: denies: chills, diaphoresis, fatigue, fever, malaise, sweats, weakness, others EENTM: denies: blurred vision, double vision, ear bleeding, ear discharge, ear drainage, ear pain, ear ringing, eye pain, eye redness, hearing loss, mouth pain, mouth swelling, nasal discharge, nose bleeding, nose congestion, nose pain, photophobia, tearing, throat pain, throat swelling, voice changes, others Respiratory: denies: cough, hemoptysis, orthopnea, SOB at rest, shortness of breath, SOB with excertion, stridor, wheezing, others Cardiovascular: denies: chest pain, dizzy spells, diaphoresis, Dyspnea on exertion, edema, irregular heart beat, left arm pain, lightheadedness, palpitations, PND, syncope, others Gastrointestinal: denies: abdomen distended, abdominal pain, blood streaked bowels, constipated, diarrhea, dysphagia, difficulty swallowing, hematemesis, melena, nausea, poor appetite, poor fluid intake, rectal bleeding, rectal pain, vomiting, others Genitourinary: denies: burning, dysuria, flank pain, frequency, hematuria, incontinence, penile discharge, penile sore, pain, testicle pain, testicle swelling, urgency, others Neurological: reports: seizure; denies: dizziness, fainting, headache, left sided numbness, left sided weakness, numbness, paresthesia, pre-existing deficit, right sided numbness, right sided weakness, speech problems, tingling, tremors, weakness, others Musculoskeletal: denies: back pain, gout, joint pain, joint swelling, muscle pain, muscle stiffness, neck pain, others Integumetry: denies: bruises, change in color, change in hair/nails, dryness, laceration, lesions, lumps, rash, wounds, others Allergic/Immunocompromised: denies: Difficulty Healing, Frequent Infections, Hives, Itching, others Hematologic/Lymphatic: denies: anemia, blood clots, easy bleeding, easy bruising, swollen glands, others Endocrine: denies: excessive hunger, excessive sweating, excessive thirst, excessive urination, flushing, intolerance to cold, intolerance to heat, unexplained weight gain, unexplained weight loss, others Psychiatric: denies: anxiety, bipolar disorder, depression, hopeless, panic disorder, schizophrenia, sleepless, suicidal, others Physical Exam General Appearance: Moderate Distress HEENT: Normal ENT Inspection, Pharynx Normal, TMs Normal Neck: Full Range of Motion, Non-Tender, Normal, Normal Inspection Respiratory: Chest Non-Tender, Lungs Clear, No Accessory Muscle Use, No Respiratory Distress, Normal Breath Sounds Cardiovascular: No Edema, No JVD, No Murmur, No Gallop, Normal Peripheral Pulses, Regular Rate/Rhythm Breast Exam: Deferred Gastrointestinal: No Organomegaly, Non Tender, No Pulsatile Mass, Normal Bowel Sounds, Soft Genitalia: Deferred Pelvic: Deferred Rectal: Deferred Extremities: No calf tenderness, Normal capillary refill, Normal inspection, Normal range of motion, Non-tender, No pedal edema Musculoskeletal : Apperance: Normal Neurologic: Alert, vice president quality II-XII nml as Tested, No Motor Deficits, Normal Affect, Normal Mood, No Sensory Deficits Cerebellar Function: NOT DONE Reflexes: NOT DONE Skin: Bruises (Facial), Dry, Normal Color, Warm Peripheral Pulses: 3+ Radial (R), 3+ Radial (L) Lymphatic: No Adenopathy Was a procedure done? Was a procedure done?: No Differential Dx Considerations may include: Head injury Seizure X-Ray, Labs, Meds, VS Vital Signs Date Time Temp Pulse Resp B/P (MAP) Pulse Ox O2 Delivery O2 Flow Rate FiO2 03/20/25 12:50 98.1 110 18 150/76 97 98.1 Patient alert. Had a seizure. Bruising of the face. Vitals stable. He is not taking his Keppra. Establish intravenous access. Was given fluids. Was given Keppra. Reviewed his previous visit. Explained to the patient. Continue monitoring. Time of 1ST Reevaluation: 13:18 Reevaluation 1ST: Unchanged Patient Education/Counseling: Diagnosis, Treatment, Prognosis Family Education/Counseling: No Family Present SEPSIS Sepsis Screen Date sepsis recognized/suspect: Mar 20, 2025 Time Sepsis recognized/suspect: 1245 Recent Procedure: No On Antibiotic Therapy: No Respiratory Rate >20: No Heart Rate >90: Yes Temp<36 C (96.8 F) or >38.3 C: No SBP <90 or MAP <65 mmHG: No New Acute Mental Status Change: No Is the patient on CPAP, BIPAP,: No Vital Signs Date Time Temp Pulse Resp B/P (MAP) Pulse Ox O2 Delivery O2 Flow Rate FiO2 03/20/25 12:50 98.1 110 18 150/76 97 98.1 Departure 1 Departure Time of Disposition: 13:19 Impression: Primary Impression: Seizure Disposition: 09 ADMITTED INPATIENT Admit to: Med Surg Condition: Guarded Critical Care Note Critical Care Time?: Yes (90 min-critical care time only) Stability Stability form required: No Heart Score Heart Score: Heart Score Response (Comments) Value History N/A 0 EKG N/A 0 Age N/A 0 Risk Factors N/A 0 Troponin N/A 0 Total 0 JONG GOLDSTEIN MD Mar 20, 2025 13:14
[2025-03-20] MEDS: SODIUM CHLORIDE 0.9% 1,000 ML IV ONE ×2 (13:15→13:30)
[2025-03-20 13:48] LABS: Hematocrit 44.7 % (41.0-53.0); Hemoglobin 15.7 g/dL (13.5-17.5); Mean Corpuscular Hemoglobin 31.2 pg (28.0-32.0); Mean Corpuscular Volume 89.1 fL (80.0-100.0); Nucleated Red Blood Cells % 0.1 %
[2025-03-20 13:54] LABS: Chloride 105 mmol/L (98-107); Potassium 3.6 mmol/L (3.5-5.1); Sodium 139 mmol/L (136-145)
[2025-03-20 13:55] LABS: Anion Gap 10 (5-15); Calcium 8.4 mg/dL (8.7-10.4); Carbon Dioxide 24 mmol/L (20-31)
[2025-03-20 14:00] LABS: BUN/Creatinine Ratio 5.6 (10.0-20.0)
[2025-03-20 14:01] LABS: Blood Urea Nitrogen 5 mg/dL (9-23); Glucose 106 mg/dL (74-106)
--- NOTE | 2025-03-20 14:02 | DVH ---
EXAM: CT HEAD WITHOUT CONTRAST INDICATION: seizure TECHNIQUE: CT of the head without intravenous contrast. Radiation Dose : 1. Head: CT Dose: CTDI volume is 57 mGy. Dose-length product is 1002 mGy*cm The dose indicators for CT are the volume Computed Tomography (CT) Dose Index (CTDIvol) and the Dose Length Product (DLP), and are measured in units of mGy and mGy-cm, respectively. These indicators are not patient dose, but values generated from the CT scanner acquisition factors. The report includes radiation exposure data for exposures received during this examination. COMPARISON: CT HEAD WITHOUT CONTRAST on DOS: 05/26/24, CT HEAD WITHOUT CONTRAST on DOS: 04/12/24, HEAD WITHOUT CONTRAST on DOS: 12/27/21, HWOCT on DOS: 12/27/21 FINDINGS: There is no evidence of acute intracranial hemorrhage, extra-axial collection, mass effect, midline s hift, herniation or hydrocephalus. The ventricles, sulci and cisterns are age appropriate. The shannon-white differentiation is intact. The visualized paranasal sinuses and mastoid air cells are clear. Right frontal soft-tissue hematoma, moderate IMPRESSION: No acute intracranial abnormality. Radiation optimization: All CT scans at this facility use at least one of these dose optimization nelly hniques: automated exposure control mA and/or kV adjustment per patient size (includes targeted exam s where dose is matched to clinical indication) or iterative reconstruction.
--- NOTE | 2025-03-20 14:16 | DVH ---
Procedure: CT MAXILLOFACIAL WITHOUT Study Date and Requested Time: 2024 01:28 PM History: seizure Comparison: CT HEAD WITHOUT CONTRAST on DOS: 05/26/24, CT HEAD WITHOUT CONTRAST on DOS: 04/12/24, HEAD WITHOUT CONTRAST on DOS: 12/27/21 Dose: CTDI: 66.75 mGy DLP: 1.78 mGycm Technique: Multiplanar images obtained through the face without intravenous contrast. Findings: Moderate right forehead hematoma/ edema extending of the right upper eyelid. Acute nasal bone fracture with minimal adjacent soft tissue edema in. There is also acute fracture t hrough the right inferolateral orbital wall and right posterior maxillary sinus with fluid within the right maxillary sinus. Mucous retention cyst is also noted within the right maxillary sinus. Minimal mucoperiosteal thickening of the ethmoid air cells and inferior frontal sinuses. The remainde r of the paranasal sinuses and bilateral mastoids are clear. The orbits and globes unremarkable. No extraocular muscle entrapment. 2 x 1.2 cm right-sided posterior nasal polyp. Mild prominence of the lingual, and palatine tonsils. Otherwise, the oropharynx and hypopharynx unre markable. Subcentimeter cervical lymph nodes which are most likely reactive. Impression: Acute fracture of the right inferolateral orbital wall with no extraocular muscle entrapment. Additional acute fracture of the right posterior lateral maxillary sinus with a associated small amou nt of fluid within the right maxillary sinus. Unchanged mucous retention cysts within the right maxil grace sinus. Acute nasal bone fracture with minimal adjacent soft tissue edema. Moderate right forehead hematoma extending over the upper eyelid.
[2025-03-20] MEDS: levETIRAcetam 1000 mg/100ml 100 ML IV ONE (15:43)
[2025-03-20 18:15] LABS: Urine Protein, UAD Negative (Negative)
[2025-03-20] MEDS ORDERED: HYDROmorphone HCL 2 MG/ML VL/or syr IV PRN (19:15)
[2025-03-20] MEDS ORDERED: ONDANSETRON HCL 4 MG/2 ML VIAL IV PRN (19:15)
[2025-03-20] MEDS ORDERED: DOCUSATE SOD 100 MG CAP PO PRN (19:15)
[2025-03-20] MEDS ORDERED: ACETAMINOPHEN 325 MG TAB PO PRN (19:15)
--- NOTE | 2025-03-20 19:16 | DVHHP2 ---
Admitting Diagnosis: Seizure History of Present Illness 24-year-old male brought by paramedics from home because he had seizure episode witnessed by family member. He had two seizures with a few sec interval. Roque johnson did wake up this morning with a seizure while he is trying to get up he had another seizure landing on his face causing bruising of his right eye. Unknown whether he has lost consciousness. He is not taking his Keppra. He does drink alcohol on a daily basis. Denies any symptoms. PAST MEDICAL HISTORY: Seizures Surgical History: Denies all surgeries Family History Family History: Reviewed,noncontributory to illness, No family hx of Cancer, No family hx of DM, No family hx of Heart bruce, No family hx of HTN, No family hx ofKidney bruce, No family hx of Liver bruce, No family hx of Lung bruce, No family hx of Stroke Family History (Other): Seizures Social History Smoker: Non-Smoker Alcohol: Heavy Drugs: Marijuana Lives In: Home Patient Family History: Seizure disorder G8 MOTHER Allergies: Coded Allergies: NO KNOWN ALLERGIES (Unverified , 12/04/16) Home Meds Active Scripts Mupirocin Calcium (Topical) (MUPIROCIN) 2 % Cre, 1 APPLIC EX BID for 7 Days, #15 GRAMS 0 Refills Prov:JENN TOPETE NP 07/15/24 Ibuprofen (Ibuprofen) 800 Mg Tab, 1 TAB PO TID for 7 Days, #21 TAB 0 Refills Prov:JENN TOPETE NP 07/15/24 Cephalexin Monohydrate (Cephalexin) 500 Mg Cap, 1 CAP PO QID for 7 Days, #28 CAP 0 Refills Prov:JENN TOPETE NP 07/15/24 Ibuprofen (Ibuprofen) 800 Mg Tab, 1 TAB PO TID PRN, #30 TAB 0 Refills Prov:MILTON URENA 06/23/24 Levetiracetam (Keppra) 500 Mg Tab, 1000 MG PO BID for 30 Days, #120 TAB Prov:MARIA DEL CARMEN PINEDO 04/13/24 Vital Signs Vital Signs Date Time Temp Pulse Resp B/P (MAP) Pulse Ox O2 Delivery O2 Flow Rate FiO2 03/20/25 12:50 98.1 110 18 150/76 97 98.1 Physical Exam Generally-74 years old male, well nourished well developed. Mild distress HEENT-right upper eye lid hematoma, right facial pain. EOMI Heart-regular rate and rhythm Lungs clear to auscultate bilaterally Abdomen soft nontender nondistended Musculoskeletal-no edema cyanosis Neuro-AO x3, no focal deficits SEPSIS Sepsis Screen Date sepsis recognized/suspect: Mar 20, 2025 Time Sepsis recognized/suspect: 1245 Recent Procedure: No On Antibiotic Therapy: No Respiratory Rate >20: No Heart Rate >90: Yes Temp<36 C (96.8 F) or >38.3 C: No SBP <90 or MAP <65 mmHG: No New Acute Mental Status Change: No Is the patient on CPAP, BIPAP,: No Physician Orders Head Without Contrast (03/20/25 13:15) Maxillofacial Without (03/20/25 13:15) Sodium Chloride 0.9% (03/20/25 13:15) Vital Signs Date Time Temp Pulse Resp B/P (MAP) Pulse Ox O2 Delivery O2 Flow Rate FiO2 03/20/25 12:50 98.1 110 18 150/76 97 98.1 Laboratory Tests Test 03/20/25 13:29 White Blood Count 9.0 10^3/uL (4.4-10.8) Medications Medications Dose Ordered Sig/[place] Route Start Time Stop Time Status Last Admin Dose Admin Levetiracetam 100 ml @ 400 mls/hr ONCE ONCE IV 03/20/25 14:30 03/20/25 14:44 DC 03/20/25 15:43 Sodium Chloride 1,000 ml @ 150 mls/hr Q6H40M ONCE IV 03/20/25 13:15 03/20/25 19:54 03/20/25 13:15 Sodium Chloride 1,000 ml @ 1,000 mls/hr Q1H ONCE IV 03/20/25 13:15 03/20/25 14:14 DC 03/20/25 13:30 Results Labs Test 03/20/25 13:50 03/20/25 13:29 Range/Units Urine Color Light-yellow Yellow Urine Clarity Clear Clear Urine pH 6.0 5.0-9.0 Urine Specific [place] 1.012 1.001-1.035 Urine Protein Negative Negative Urine Ketones Trace Negative Urine Blood Trace H Negative /uL Urine Nitrite Negative Negative Urine Bilirubin Negative Negative Urine Urobilinogen Normal Negative mg/dL Urine Leukocyte Esterase Negative Negative /uL Urine RBC <1 0 - 3 /hpf Urine Microscopic WBC < 1 0-3 /HPF Urine Squamous Epithelial Cells None seen <5 /hpf Urine Bacteria None seen None Seen /hpf Urine Mucus Few None Seen Urine Glucose Normal Normal mg/dL White Blood Count 9.0 4.4-10.8 10^3/uL Red Blood Count 5.02 4.5-5.90 10^6/uL Hemoglobin 15.7 13.5-17.5 g/dL Hematocrit 44.7 41.0-53.0 % Mean Corpuscular Volume 89.1 80.0-100.0 fL Mean Corpuscular Hemoglobin 31.2 28.0-32.0 pg Mean Corpuscular Hemoglobin Concent 35.0 32.0-36.0 g/dL Red Cell Distribution Width 15.4 H 11.8-14.3 % Platelet Count 303 140-450 10^3/uL Mean Platelet Volume 7.1 6.9-10.8 fL Neutrophils (%) (Auto) 80.3 H 37.0-80.0 % Lymphocytes (%) (Auto) 13.1 10.0-50.0 % Monocytes (%) (Auto) 4.5 0.0-12.0 % Eosinophils (%) (Auto) 1.0 0.0-7.0 % Basophils (%) (Auto) 1.1 0.0-2.0 % Neutrophils # (Auto) 7.3 1.6-8.6 10 ^3/uL Lymphocytes # (Auto) 1.2 0.4-5.4 10 ^3/uL Monocytes # (Auto) 0.4 0-1.3 10 ^3/uL Eosinophils # (Auto) 0.1 0-0.8 10 ^3/uL Basophils # (Auto) 0.1 0-0.2 10 ^3/uL Nucleated Red Blood Cells 0.1 % Sodium Level 139 136-145 mmol/L Potassium Level 3.6 3.5-5.1 mmol/L Chloride Level 105 98-107 mmol/L Carbon Dioxide Level 24 20-31 mmol/L Anion Gap 10 5-15 Blood Urea Nitrogen 5 L 9-23 mg/dL Creatinine 0.89 0.700-1.30 mg/dL Glomerular Filtration Rate Calc 123 >90 mL/min BUN/Creatinine Ratio 5.6 L 10.0-20.0 Serum Glucose 106 74-106 mg/dL Calcium Level 8.4 L 8.7-10.4 mg/dL Primary Diagnosis seizure due to medication non-complication Plan No diplopia able to move Full range of motion of right eye, Resume Keppra a 1000 mg b.i.d. Neuro check per floor protocol Aspiration and fall precaution IV fluids Regular diet Full code SCD for DVT prophylaxis No GI prophylaxis needed Plan discussed with: Patient Problems List: (1) Seizure Status: Acute Date of Service: Mar 20, 2025 Billing Provider: CALIXTO KLEIN MD Common Visit Codes: [id number] INP/OBS CARE (HIGH) CALIXTO KLEIN MD Mar 20, 2025 19:16
[2025-03-20] MEDS: SODIUM CHLOR 0.9% PF (SALINE LOCK) 10ML VIAL/SYR IV SCH (22:00)
[2025-03-20] MEDS: levETIRAcetam 1000 mg/100ml 100 ML IV SCH (22:09)
[2025-03-21] VITALS (7 sets, daily range): BP systolic 115–126; BP diastolic 77–89; PULSE 74–89; RESP 12–20; TEMP 97.6–98.8; O2SAT 95–100
--- NOTE | 2025-03-21 07:26 | DVH ---
EXAM: CT CERVICAL WITHOUT CONTRAST INDICATION: ASSESSMENT EXAM DATE: 03/21/2025 06:39 AM COMPARISON: None TECHNIQUE: Multiple axial CT images of the cervical spine were obtained using bone algorithm. Sagitta l and coronal reformatting was done. Bone and soft tissue windows were reviewed. Radiation Dose Information: CT Dose: CTDI volume is 21.0 mGy. Dose-length product is 1.78 mGy*cm FINDINGS: The cervical alignment is intact. Straightening of the cervical lordosis. No acute cervical spine fra cture is identified. The vertebral body heights are intact. No suspicious osseous lesions are identif ied. No significant degenerative changes are identified. No significant spinal or neural foraminal stenosi s. There is no prevertebral soft tissue swelling. IMPRESSION: 1. No evidence of acute cervical spine fracture or traumatic malalignment. All CT scans at this medical facility are performed using dose modulation techniques as appropriate t o a performed exam including the following: Automated exposure control was utilized; adjustment of th e MA and/or KV according to patient size; and use of iterative reconstruction technique.
[2025-03-21] MEDS: HYDROcodone-ACET 5/325MG TAB PO PRN (11:48)
[2025-03-21] MEDS ORDERED: LORazepam 2MG/ML-1ML VIAL IV PRN (13:00)
--- NOTE | 2025-03-21 14:00 | DVHPN2 ---
Subjective Crosscover today for [facility]. Patient's chart is reviewed and admitted here overnight for apparent breakthrough seizure. Patient has not taken his Keppra for last few days per him. Patient also drinks two beers daily according to him. Since admission he remained seizure free. His imaging results reviewed noted to have orbital and nasal bone fractures. Denies any headache. Changes from previous H/P or p: No Changes Objective Vitals Vital Signs Date Time Temp Pulse Resp B/P (MAP) Pulse Ox O2 Delivery O2 Flow Rate FiO2 03/21/25 12:59 98.8 89 20 115/77 (90) 98 98.8 03/21/25 11:11 Room Air* 0 21 Intake/Output Intake and Output 03/21/25 07:00 Intake Total 1200 ml Balance 1200 ml Intake IV Total 1200 ml Exam Alert awake oriented x3. Comfortable in bed without any distress. HEENT pupils equal round react to light. Mild bruising in the right periorbital region. Heart regular rate and rhythm S1-S2. Lungs fair air movement without rales wheezes. Abdomen soft positive bowel sounds. Extremities no edema positive pulses. Neurologic no focal deficits. Medications Current Medications Medications Dose Ordered Sig/[place] Route Start Time Stop Time Status Last Admin Dose Admin Sodium Chloride 10 ml Q8HR IV 03/20/25 22:00 03/21/25 06:08 10 ML Docusate Sodium 100 mg BIDPRN PRN PO 03/20/25 19:15 Acetaminophen 650 mg Q6HP PRN PO 03/20/25 19:15 Acetaminophen/ Hydrocodone Bitart 1 tab Q4HP PRN PO 03/20/25 19:15 03/21/25 11:48 1 TAB Ondansetron HCl 4 mg Q4HP PRN IV 03/20/25 19:15 Levetiracetam 100 ml @ 400 mls/hr BID IV 03/20/25 22:00 03/21/25 10:33 400 MLS/HR Ketorolac Tromethamine 15 mg Q6HPRN PRN IV 03/21/25 13:00 03/26/25 12:59 Lorazepam 1 mg Q5MINP PRN IV 03/21/25 13:00 Laboratory Results Laboratory Tests 03/20/25 13:29 Urinalysis Test 03/20/25 13:50 Urine Color Light-yellow (Yellow) Urine Clarity Clear (Clear) Urine pH 6.0 (5.0-9.0) Urine Specific [place] 1.012 (1.001-1.035) Urine Protein Negative (Negative) Urine Ketones Trace (Negative) Urine Blood Trace /uL (Negative) H Urine Nitrite Negative (Negative) Urine Bilirubin Negative (Negative) Urine Urobilinogen Normal mg/dL (Negative) Urine Leukocyte Esterase Negative /uL (Negative) Urine RBC <1 /hpf (0 - 3) Urine Microscopic WBC < 1 /HPF (0-3) Urine Squamous Epithelial Cells None seen /hpf (<5) Urine Bacteria None seen /hpf (None Seen) Urine Mucus Few (None Seen) Urine Glucose Normal mg/dL (Normal) Assessment/Plan Assessment/Plan Continue Keppra IV as he is on overnight. Alcohol withdrawal protocol. Neurological consultation. Patient counseled and educated regarding alcohol cessation as well as compliance with his seizure medications. We will have social Service to give him resources and referrals to alcohol rehab programs. Otherwise continue rest of supportive care and treatment as he is on. Further clinical management per clinical course. Discussed with the patient and nurse regarding care plan. Plan discussed with: Patient, Other My Orders Orders - TERA TINSLEY MD Procedure Category Date Status Time Drug Screen LAB 03/21/25 Logged 12:46 Urine Ethanol LAB 03/21/25 Logged 12:46 Etoh Withdrawal TED 03/21/25 In Process Assessment 12:46 Ketorolac Injection PHA 03/21/25 In Process (Toradol Injection) 13:00 Lorazepam 2mg/Ml Inj PHA 03/21/25 In Process (Ativan Inj) 13:00 *Consult Dr[address] Rivero CONS 03/21/25 Transmitted Irene 12:48 Problem List: (1) Seizure (2) Alcohol abuse (3) Orbital roof fracture without intracranial injury (4) Nasal bone fractures Date of Service: Mar 21, 2025 Billing Provider: TERA TINSLEY MD Common Visit Codes: [id number] INP/OBS CARE(MOD) TERA TINSLEY MD Mar 21, 2025 14:00
[2025-03-21 14:36] LABS: Amphetamine Screen, Urine Neg (NEGATIVE); Barbiturate Scree,Urine Neg (NEGATIVE); Benzodiazephine Screen, Urine Neg (NEGATIVE); Cannabinoid Screen, Urine Pos (NEGATIVE); Cocaine Screen, Urine Neg (NEGATIVE); Phencyclidine Screen, Urine Neg (NEGATIVE)
[2025-03-21 14:37] LABS: Opiate Scree,Urine Neg (NEGATIVE)
[2025-03-21] MEDS: KETOROLAC TROMETH 30 MG/ML 1ML VIAL IV PRN (21:36)
[2025-03-22 05:00] VITALS: BP 149/118; PULSE 80; RESP 18; TEMP 98.7; O2SAT 98
[2025-03-22 09:00] VITALS: BP 133/86; PULSE 82; RESP 20; TEMP 97.5; O2SAT 98
[2025-03-22 13:10] VITALS: BP 127/92; PULSE 63; RESP 18; TEMP 97.6; O2SAT 100
[2025-03-22] MEDS ORDERED: IBUP-1456 PO (15:27)
[2025-03-22] MEDS ORDERED: AMOX500T86 PO (15:27)
[2025-03-22] MEDS ORDERED: LEVE500T40 PO (15:27)
--- NOTE | 2025-03-22 15:30 | DVHDS2 ---
Discharge Summary Date of Admission Mar 20, 2025 at 19:07 Date of Discharge: Mar 22, 2025 Labs/Diagnostic Data: Laboratory Results Test 03/21/25 13:58 03/21/25 13:52 03/20/25 13:50 03/20/25 13:29 Plasma/Serum Blood Alcohol < 3.0 mg/dL (<10) Urine Opiates Screen Neg (NEGATIVE) Urine Fentanyl Screen Neg (NEGATIVE) Urine Barbiturates Screen Neg (NEGATIVE) Urine Phencyclidine Screen Neg (NEGATIVE) Urine Amphetamines Screen Neg (NEGATIVE) Urine Benzodiazepines Screen Neg (NEGATIVE) Urine Cocaine Screen Neg (NEGATIVE) Urine Cannabinoids Screen Pos (NEGATIVE) Urine Color Light-yellow (Yellow) Urine Clarity Clear (Clear) Urine pH 6.0 (5.0-9.0) Urine Specific [place] 1.012 (1.001-1.035) Urine Protein Negative (Negative) Urine Ketones Trace (Negative) Urine Blood Trace /uL (Negative) Urine Nitrite Negative (Negative) Urine Bilirubin Negative (Negative) Urine Urobilinogen Normal mg/dL (Negative) Urine Leukocyte Esterase Negative /uL (Negative) Urine RBC <1 /hpf (0 - 3) Urine Microscopic WBC < 1 /HPF (0-3) Urine Squamous Epithelial Cells None seen /hpf (<5) Urine Bacteria None seen /hpf (None Seen) Urine Mucus Few (None Seen) Urine Glucose Normal mg/dL (Normal) White Blood Count 9.0 10^3/uL (4.4-10.8) Red Blood Count 5.02 10^6/uL (4.5-5.90) Hemoglobin 15.7 g/dL (13.5-17.5) Hematocrit 44.7 % (41.0-53.0) Mean Corpuscular Volume 89.1 fL (80.0-100.0) Mean Corpuscular Hemoglobin 31.2 pg (28.0-32.0) Mean Corpuscular Hemoglobin Concent 35.0 g/dL (32.0-36.0) Red Cell Distribution Width 15.4 % (11.8-14.3) Platelet Count 303 10^3/uL (140-450) Mean Platelet Volume 7.1 fL (6.9-10.8) Neutrophils (%) (Auto) 80.3 % (37.0-80.0) Lymphocytes (%) (Auto) 13.1 % (10.0-50.0) Monocytes (%) (Auto) 4.5 % (0.0-12.0) Eosinophils (%) (Auto) 1.0 % (0.0-7.0) Basophils (%) (Auto) 1.1 % (0.0-2.0) Neutrophils # (Auto) 7.3 10 ^3/uL (1.6-8.6) Lymphocytes # (Auto) 1.2 10 ^3/uL (0.4-5.4) Monocytes # (Auto) 0.4 10 ^3/uL (0-1.3) Eosinophils # (Auto) 0.1 10 ^3/uL (0-0.8) Basophils # (Auto) 0.1 10 ^3/uL (0-0.2) Nucleated Red Blood Cells 0.1 % Sodium Level 139 mmol/L (136-145) Potassium Level 3.6 mmol/L (3.5-5.1) Chloride Level 105 mmol/L (98-107) Carbon Dioxide Level 24 mmol/L (20-31) Anion Gap 10 (5-15) Blood Urea Nitrogen 5 mg/dL (9-23) Creatinine 0.89 mg/dL (0.700-1.30) Glomerular Filtration Rate Calc 123 mL/min (>90) BUN/Creatinine Ratio 5.6 (10.0-20.0) Serum Glucose 106 mg/dL (74-106) Calcium Level 8.4 mg/dL (8.7-10.4) Other Laboratory Tests 03/20/25 13:29 Brief Hx & Hospital Course: History of Present Illness 24-year-old male brought by paramedics from home because he had seizure episode witnessed by family member. He had two seizures with a few sec interval. Patient did wake up this morning with a seizure while he is trying to get up he had another seizure landing on his face causing bruising of his right eye. Unknown whether he has lost consciousness. He is not taking his Keppra. He does drink alcohol on a daily basis. Denies any symptoms. He is admitted and underwent counseling regarding alcohol abstinence and being compliant with his seizure medications. While in the hospital patient remained seizure-free. Patient had a head as well as maxillofacial and cervical CT scans. He is noted to have a orbital, maxillary sinus and nasal bone fractures. Patient is advised fall precautions. In the hospital he received IV Keppra. He is feeling better. I have prescribed him oral Keppra and advised him to seek help with outpatient alcohol drug rehab programs. Otherwise while in the hospital clinically stable. Patient is also prescribed antibiotic for his maxillary sinusitis. Patient is advised to follow up with his PCP and have further outpatient referrals and follow up as deemed appropriate with the in the ENT or maxillofacial surgeon for any further problems from his fractures. Patient verbalized understanding of my conversation with the him, verbalized understanding of his hospital diagnosis, treatment he received, discharge medications, discharge instructions and agree with the follow up plan of care as outlined. Operations or Procedures PROCEDURE(s): FAC2C - MAXILLOFACIAL WITHOUT REASON: seizure ORDER NUMBER(s): [id number], ACCESSION NUMBER(s): [id number] Procedure: CT MAXILLOFACIAL WITHOUT Study Date and Requested Time: 03/20/2025 01:28 PM History: seizure Comparison: CT HEAD WITHOUT CONTRAST on DOS: 05/26/24, CT HEAD WITHOUT CONTRAST on DOS: 04/12/24, HEAD WITHOUT CONTRAST on DOS: 12/27/21 Dose: CTDI: 66.75 mGy DLP: 1.78 mGycm Technique: Multiplanar images obtained through the face without intravenous contrast. Findings: Moderate right forehead hematoma/ edema extending of the right upper eyelid. Acute nasal bone fracture with minimal adjacent soft tissue edema in. There is also acute fracture through the right inferolateral orbital wall and right posterior maxillary sinus with fluid within the right maxillary sinus. Mucous retention cyst is also noted within the right maxillary sinus. Minimal mucoperiosteal thickening of the ethmoid air cells and inferior frontal sinuses. The remainder of the paranasal sinuses and bilateral mastoids are clear. The orbits and globes unremarkable. No extraocular muscle entrapment. 2 x 1.2 cm right-sided posterior nasal polyp. Mild prominence of the lingual, and palatine tonsils. Otherwise, the oropharynx and hypopharynx unremarkable. Subcentimeter cervical lymph nodes which are most likely reactive. Impression: Acute fracture of the right inferolateral orbital wall with no extraocular muscle entrapment. Additional acute fracture of the right posterior lateral maxillary sinus with a associated small amount of fluid within the right maxillary sinus. Unchanged mucous retention cysts within the right maxillary sinus. Acute nasal bone fracture with minimal adjacent soft tissue edema. Moderate right forehead hematoma extending over the upper eyelid. ATED BY: CASPER KLEIN DO DICTATED DATE/TIME: 03/20/25 1414 Condition at Discharge: Stable Final Diagnosis/Problems List Seizure disorder, breakthrough seizure, noncompliance with seizure medications, right orbital fracture and nasal bone fracture due to fall from seizure Discharge Disposition: Home Discharge Instruct/Medications Diet: Consistent carbohydrate, Cardiac 2g Na,low cholest Activity: No Restrictions, As Tolerated Follow Up/Referral: [facility] outpatient clinic next week Medications: Take medications as prescribed per discharge med reconciliation list Scheduled Amoxicillin & Pot Clavulanate (Augmentin), 1 TAB PO BID Ibuprofen (Ibuprofen), 1 TAB PO TID Levetiracetam (Keppra), 1,000 MG PO BID Mupirocin Calcium (Topical) (Mupirocin), 1 APPLIC EX BID Scheduled PRN Ibuprofen (Ibuprofen), 1 TAB PO TID PRN Discontinued Medications Cephalexin Monohydrate (Cephalexin), 1 CAP PO QID Discharge Statement: "Patient was advised to return to the ER or call 911 if any headaches, dizziness, shortness of breath, chest pain, abdominal pain, bleeding, fevers, or worsening of medical condition. Patient was counseled about treatment plan, medications, possible side effects, patientverbalized understanding. All questions were answered to the best of my ability. This discharge took greater then 30 minutes in planning, reviewing documentation, counseling the patient, and discussing with other team members." ASSESSMENT ASSESSMENT Assessment Seizure disorder, breakthrough seizure, noncompliance with seizure medications, right orbital fracture and nasal bone fracture due to fall from seizure Date of Service: Mar 22, 2025 Billing Provider: TERA TINSLEY MD Common Visit Codes: 44964-RNH/OBS DISCH DAY <30MIN TERA TINSLEY MD Mar 22, 2025 15:29
[2025-03-22 15:59] VITALS: BP 127/92; PULSE 63; RESP 18; TEMP 97.6; O2SAT 98
== END 2025-03-22 16:30 | disposition home or self-care (01) | DRG 53 ==
LOC: EDBD 12:43 → ER 12:43 → OVERFLOW 19:07 → CENTRAL 03-21 11:06
PROVIDERS: ADMIT Internal Medicine; ATTEND Internal Medicine
DX: G40.909 Epilepsy, unspecified, not intractable, without status epilepticus (principal); J32.0 Chronic maxillary sinusitis; S02.2XXA Fracture of nasal bones, initial encounter for closed fracture; Z91.148 Patient's other noncompliance with medication regimen for other reason; Z79.899 Other long term (current) drug therapy; Z79.1 Long term (current) use of non-steroidal anti-inflammatories (NSAID); Z79.2 Long term (current) use of antibiotics; W18.39XA Other fall on same level, initial encounter; Y93.89 Activity, other specified; Y92.89 Other specified places as the place of occurrence of the external cause; Y99.8 Other external cause status
CPT/HCPCS: 36415; 70450; 70486; 72125; 80048; 80307; 80320; 81001; 85025; 96365; 99291; 99292; G0378; J1885

== ENCOUNTER 2025-03-31 11:52 | Emergency (ER) | payer MEDICAID ==
[~2025-03-31] VITALS: Ht 180.3 cm; Wt 72.0 kg
[~2025-03-31 11:52] MED LIST changes: +AMOX500T86 PO; -CEPH500C PO
[2025-03-31] MEDS ORDERED: IBUP-1454 PO (12:12)
[2025-03-31] MEDS ORDERED: ACET500T58 PO (12:12)
--- NOTE | 2025-03-31 12:12 | ED.PDOC ---
Eye-HPI HPI Comments 24-year-old male who presents to the ED for chief complaint of eye pain. Patient states he has been having right eye pain and swelling for the past few days. Patient states that he was at [facility] one week prior states he was diagnosed with a seizure and had a CT which showed orbital wall fracture. Patient states that he was told to follow up with the ENT. Patient states that he missed his appointment. Patient states he came back to the ED due to increasing pain and swelling of the right orbit. Patient rates his pain 10/10 constant with no associated excess after pitting factors. States he has been taking ibuprofen for the past few days but states that it has not been helping. Patient otherwise denies any other symptoms. Patient vitals otherwise stable in the ED. Chief Complaint: Eye Problem Time Seen by MD: 12:03 Primary Care Provider: UNKNOWN Reviewed Notes: Medications, Allergies Allergies: Coded Allergies: NO KNOWN ALLERGIES (Unverified , 12/04/16) Home Meds Active Scripts Ibuprofen (Ibuprofen) 600 Mg Tab, 1 TAB PO Q8HP PRN for 10 Days, #30 TAB 0 Refills Prov:JENN TOPETE NP 03/31/25 Acetaminophen (Acetaminophen) 500 Mg Tab, 500 MG PO Q8HP PRN for 10 Days, #30 TAB 0 Refills Prov:JENN TOPETE NP 03/31/25 Amoxicillin & Pot Clavulanate (Augmentin) 500 Mg Tab, 1 TAB PO BID, #14 TAB Prov:TERA TINSLEY MD 03/22/25 Ibuprofen (Ibuprofen) 800 Mg Tab, 1 TAB PO TID PRN, #20 TAB 0 Refills Prov:TERA TINSLEY MD 03/22/25 Levetiracetam (Keppra) 500 Mg Tab, 1000 MG PO BID for 30 Days, #120 TAB Prov:TERA TINSLEY MD 03/22/25 Mupirocin Calcium (Topical) (MUPIROCIN) 2 % Cre, 1 APPLIC EX BID for 7 Days, #15 GRAMS 0 Refills Prov:JENN TOPETE NP 07/15/24 Ibuprofen (Ibuprofen) 800 Mg Tab, 1 TAB PO TID for 7 Days, #21 TAB 0 Refills Prov:JENN TOPETE NP 07/15/24 Information Source: Patient Mode of Arrival: Ambulatory Past Medical History PAST MEDICAL HISTORY: Seizures Surgical History: Denies all surgeries Family History Family History: Reviewed,noncontributory to illness, No family hx of Cancer, No family hx of DM, No family hx of Heart bruce, No family hx of HTN, No family hx ofKidney bruce, No family hx of Liver bruce, No family hx of Lung bruce, No family hx of Stroke Family History (Other): Seizures Social History Smoker: Non-Smoker Alcohol: Heavy Drugs: Marijuana Lives In: Home All Other Systems: Reviewed and Negative (See HPI) Physical Exam General Appearance: No Apparent Distress, Normal HEENT: Other (Right orbital wall pain and swelling) Neck: Full Range of Motion, Non-Tender, Normal, Normal Inspection Respiratory: Chest Non-Tender, Lungs Clear, No Accessory Muscle Use, No Respiratory Distress, Normal Breath Sounds Cardiovascular: No Edema, No JVD, No Murmur, No Gallop, Normal Peripheral Pulses, Regular Rate/Rhythm Breast Exam: Deferred Gastrointestinal: No Organomegaly, Non Tender, No Pulsatile Mass, Normal Bowel Sounds, Soft Genitalia: Deferred Pelvic: Deferred Rectal: Deferred Extremities: No calf tenderness, Normal capillary refill, Normal inspection, Normal range of motion, Non-tender, No pedal edema Musculoskeletal : Apperance: Normal Neurologic: Alert, change management specialist II-XII nml as Tested, No Motor Deficits, Normal Affect, Normal Mood, No Sensory Deficits Cerebellar Function: Normal Reflexes: Normal Skin: Dry, Normal Color, Warm Lymphatic: No Adenopathy Was a procedure done? Was a procedure done?: No EENT DIFF Eye: Allergic, Bacterial, Corneal Abrasion, Globe Rupture, Iritis/Uveitis, Orbital Cellulits, Periorbital Cellulits, Subconjunctival Hemorrhag, Ultraviolet Keratitis, Virtreous Hemorrhage Other Differential Diagnosis Headache, orbital wall fracture, seizure, X-Ray, Labs, Meds, VS Vital Signs Date Time Temp Pulse Resp B/P (MAP) Pulse Ox O2 Delivery O2 Flow Rate FiO2 03/31/25 12:19 78 17 97 Room Air 03/31/25 12:19 97.3 88 18 138/78 (98) 98 97.3 03/31/25 11:54 98.4 104 16 111/81 97 98.4 X-Ray, Labs, Meds, VS Comment 24-year-old male who presents to the ED for chief complaint of eye pain. Patient arrives alert and oriented, ABC's intact, afebrile, vital signs stable, saturating well in room air Labs in the ED showed (pertinent+ and then pertinent-) Patient was given:_. Tolerated medications with no adverse reaction. Additional MDM Review of External, Non-ED records: External records reviewed. Discussion with independent historian (EMS, family) history obtained from the patient/parents (if applicable) at bedside Chronic conditions affecting care: None Social determinants of health affecting care: None Consideration of admission (observation or admission): I considered escalation of care to admission for this patient, however given the reassuring workup, the patient is safe for outpatient management. Discussion with the Radiology: No Tests considered but not performed: Prescription medication considered but not given: 12 lead EKG interpretation: Patient Education/Counseling: Diagnosis, Treatment Family Education/Counseling: No Family Present SEPSIS Sepsis Screen Date sepsis recognized/suspect: Mar 31, 2025 Time Sepsis recognized/suspect: 1156 Recent Procedure: No On Antibiotic Therapy: No Respiratory Rate >20: No Heart Rate >90: Yes Temp<36 C (96.8 F) or >38.3 C: No SBP <90 or MAP <65 mmHG: No New Acute Mental Status Change: No Is the patient on CPAP, BIPAP,: No Vital Signs Date Time Temp Pulse Resp B/P (MAP) Pulse Ox O2 Delivery O2 Flow Rate FiO2 03/31/25 12:19 78 17 97 Room Air 03/31/25 12:19 97.3 88 18 138/78 (98) 98 97.3 03/31/25 11:54 98.4 104 16 111/81 97 98.4 Departure 1 Departure Time of Disposition: 12:10 Impression: Primary Impression: Orbital wall fracture Qualified Codes: S02.85XS - Fracture of orbit, unspecified, sequela Disposition: HOME / SELF CARE / HOMELESS Condition: Stable e-Prescriptions Ibuprofen (Ibuprofen) 600 Mg Tab 1 TAB PO Q8HP PRN for 10 Days, #30 TAB 0 Refills Prov: JENN TOPETE ENERGY ATTORNEY 03/31/25 Acetaminophen (Acetaminophen) 500 Mg Tab 500 MG PO Q8HP PRN for 10 Days, #30 TAB 0 Refills Prov: JENN TOPETE ENERGY ATTORNEY 03/31/25 Discharged With: Self Critical Care Note Critical Care Time?: No Stability Stability form required: No Heart Score Heart Score: Heart Score Response (Comments) Value History N/A 0 EKG N/A 0 Age N/A 0 Risk Factors N/A 0 Troponin N/A 0 Total 0 I personally scribed for JENN TOPETE NP ([email or web address]) on 03/31/25 at 13:19. Electronically submitted by Cory Goldstein ([facility] [email or web address]). JENN TOPETE NP Mar 31, 2025 12:12
[2025-03-31 12:19] VITALS: BP 138/78; PULSE 78; RESP 17; TEMP 97.3; O2SAT 97
[2025-03-31] MEDS: KETOROLAC TROMETH 60MG/2ML VIAL IM ONE (12:21)
== END 2025-03-31 12:20 | disposition home or self-care (01) ==
LOC: ER 11:52
DX: S02.85XA Fracture of orbit, unspecified, initial encounter for closed fracture (principal); Z79.899 Other long term (current) drug therapy; X58.XXXA Exposure to other specified factors, initial encounter; Y93.89 Activity, other specified; Y92.89 Other specified places as the place of occurrence of the external cause; Y99.8 Other external cause status

== ENCOUNTER 2025-04-08 10:07 | Emergency (ER) | payer MEDICAID ==
[~2025-04-08] VITALS: Ht 180.3 cm; Wt 77.0 kg
[~2025-04-08 10:07] MED LIST changes: +ACET500T58 PO; +IBUP-1454 PO
[2025-04-08 10:18] VITALS: BP 115/74; PULSE 96; RESP 19; TEMP 98.3; O2SAT 98
--- NOTE | 2025-04-08 10:34 | ED.PDOC ---
History of Present Illness HPI Comments 24-year-old male with PMHx Seizure brought in by EMS presents with a chief complaint of seizure activity. Patient states that he had a seizure while he was asleep and his sister witnessed it. Patient denies having a neurologist and states that he gets his medication from here whenever he is in the ER. Patient mentions that he takes Keppra and has not missed a dose. Patient reports that he is a marijuana smoker and heavy alcohol drinker, but reports that he last drank the day before yesterday. Patient is agitated at this time. Chief Complaint: Seizure Time Seen by MD: : Primary Care Provider: UNKNOWN Reviewed Notes: Medications, Allergies Allergies: Coded Allergies: NO KNOWN ALLERGIES (Unverified , 12/04/16) Home Meds Active Scripts Ibuprofen (Ibuprofen) 600 Mg Tab, 1 TAB PO Q8HP PRN for 10 Days, #30 TAB 0 Refills Prov:JENN TOPETE NP 03/31/25 Acetaminophen (Acetaminophen) 500 Mg Tab, 500 MG PO Q8HP PRN for 10 Days, #30 TAB 0 Refills Prov:JENN TOPETE NP 03/31/25 Amoxicillin & Pot Clavulanate (Augmentin) 500 Mg Tab, 1 TAB PO BID, #14 TAB Prov:TERA TINSLEY MD 03/22/25 Ibuprofen (Ibuprofen) 800 Mg Tab, 1 TAB PO TID PRN, #20 TAB 0 Refills Prov:TERA TINSLEY MD 03/22/25 Levetiracetam (Keppra) 500 Mg Tab, 1000 MG PO BID for 30 Days, #120 TAB Prov:TERA TINSLEY MD 03/22/25 Mupirocin Calcium (Topical) (MUPIROCIN) 2 % Cre, 1 APPLIC EX BID for 7 Days, #15 GRAMS 0 Refills Prov:JENN TOPETE NP 07/15/24 Ibuprofen (Ibuprofen) 800 Mg Tab, 1 TAB PO TID for 7 Days, #21 TAB 0 Refills Prov:JENN TOPETE NP 07/15/24 Information Source: Patient Mode of Arrival: EMS Severity: Moderate Timing: Hours Duration: Since onset Prehospital treatment: Cable [employer] Past Medical History PAST MEDICAL HISTORY: Seizures Surgical History: Denies all surgeries Family History Family History: Reviewed,noncontributory to illness, No family hx of Cancer, No family hx of DM, No family hx of Heart bruce, No family hx of HTN, No family hx ofKidney bruce, No family hx of Liver bruce, No family hx of Lung bruce, No family hx of Stroke Family History (Other): Seizures Social History Smoker: Non-Smoker Alcohol: Heavy Drugs: Marijuana Lives In: Home Constitutional: denies: chills, diaphoresis, fatigue, fever, malaise, sweats, weakness, others EENTM: denies: blurred vision, double vision, ear bleeding, ear discharge, ear drainage, ear pain, ear ringing, eye pain, eye redness, hearing loss, mouth pain, mouth swelling, nasal discharge, nose bleeding, nose congestion, nose pain, photophobia, tearing, throat pain, throat swelling, voice changes, others Respiratory: denies: cough, hemoptysis, orthopnea, SOB at rest, shortness of breath, SOB with excertion, stridor, wheezing, others Cardiovascular: denies: chest pain, dizzy spells, diaphoresis, Dyspnea on exertion, edema, irregular heart beat, left arm pain, lightheadedness, palpitations, PND, syncope, others Gastrointestinal: denies: abdomen distended, abdominal pain, blood streaked bowels, constipated, diarrhea, dysphagia, difficulty swallowing, hematemesis, melena, nausea, poor appetite, poor fluid intake, rectal bleeding, rectal pain, vomiting, others Genitourinary: denies: burning, dysuria, flank pain, frequency, hematuria, incontinence, penile discharge, penile sore, pain, testicle pain, testicle swelling, urgency, others Neurological: reports: seizure; denies: dizziness, fainting, headache, left sided numbness, left sided weakness, numbness, paresthesia, pre-existing deficit, right sided numbness, right sided weakness, speech problems, tingling, tremors, weakness, others Musculoskeletal: denies: back pain, gout, joint pain, joint swelling, muscle pain, muscle stiffness, neck pain, others Integumetry: denies: bruises, change in color, change in hair/nails, dryness, laceration, lesions, lumps, rash, wounds, others Allergic/Immunocompromised: denies: Difficulty Healing, Frequent Infections, Hives, Itching, others Hematologic/Lymphatic: denies: anemia, blood clots, easy bleeding, easy bruising, swollen glands, others Endocrine: denies: excessive hunger, excessive sweating, excessive thirst, excessive urination, flushing, intolerance to cold, intolerance to heat, unexplained weight gain, unexplained weight loss, others Psychiatric: denies: anxiety, bipolar disorder, depression, hopeless, panic disorder, schizophrenia, sleepless, suicidal, others All Other Systems: Reviewed and Negative Physical Exam General Appearance: No Apparent Distress, Normal HEENT: Normal ENT Inspection, Pharynx Normal, TMs Normal Neck: Full Range of Motion, Non-Tender, Normal, Normal Inspection Respiratory: Chest Non-Tender, Lungs Clear, No Accessory Muscle Use, No Respiratory Distress, Normal Breath Sounds Cardiovascular: No Edema, No JVD, No Murmur, No Gallop, Normal Peripheral Pulses, Regular Rate/Rhythm Breast Exam: Deferred Gastrointestinal: No Organomegaly, Non Tender, No Pulsatile Mass, Normal Bowel Sounds, Soft Genitalia: Deferred Pelvic: Deferred Rectal: Deferred Extremities: No calf tenderness, Normal capillary refill, Normal inspection, Normal range of motion, Non-tender, No pedal edema Musculoskeletal : Apperance: Normal Neurologic: Alert, community health coordinator II-XII nml as Tested, No Motor Deficits, Normal Affect, Normal Mood, No Sensory Deficits Cerebellar Function: Normal Reflexes: Normal Skin: Dry, Normal Color, Warm Lymphatic: No Adenopathy Was a procedure done? Was a procedure done?: No EKG EKG : Pulse Rate (adult): 82 [place]: Normal Cardiac Rhythm: NSR Block: None Hypertrophy: None ST: Normal Differential Dx Considerations may include: break through seizures, medication noncompliance, substance abuse, hypoglycemia, hypotension, intracranial mass, electrolyte disorders, intracranial bleed, are all part of the differentials. On examination however patient is back to alert oriented with no complaints. There is no signs of any injuries nor any neurologic deficits on exam. I did order electrolytes drug screen and ETOH however patient wishes to sign out against medical advice understanding his risks and benefits. X-Ray, Labs, Meds, VS Vital Signs Date Time Temp Pulse Resp B/P (MAP) Pulse Ox O2 Delivery O2 Flow Rate FiO2 04/08/25 11:03 82 04/08/25 11:03 82 04/08/25 10:18 98.3 96 19 115/74 (88) 98 98.3 04/08/25 10:18 96 19 98 Room Air* 0 21 04/08/25 10:09 98.0 107 18 136/81 98 98.0 Lab Test 04/08/25 10:46 Range/Units Sodium Level 143 136-145 mmol/L Potassium Level 3.8 3.5-5.1 mmol/L Chloride Level 107 98-107 mmol/L Carbon Dioxide Level 24 20-31 mmol/L Anion Gap 12 5-15 Blood Urea Nitrogen Pending Creatinine Pending Glomerular Filtration Rate Calc Pending BUN/Creatinine Ratio Pending Serum Glucose Pending Calcium Level 8.0 L 8.7-10.4 mg/dL Plasma/Serum Blood Alcohol Pending Time of 1ST Reevaluation: 10:47 Reevaluation 1ST: Unchanged Patient Education/Counseling: Diagnosis, Treatment, Need For Follow Up Family Education/Counseling: No Family Present Additional Information The following tests were ordered, and results were reviewed by me: BMP, Alcohol, Drug Screen Additional Information was gathered from interviewing the following independent historians: EMS/Agent Producer I discussed treatment and results with medical personnel and: PATIENT Comprehensive systems review obtained and negative except for what is stated in the HPI. SEPSIS Sepsis Screen Date sepsis recognized/suspect: Apr 08, 2025 Time Sepsis recognized/suspect: 1012 Recent Procedure: No Respiratory Rate >20: No Heart Rate >90: Yes Temp<36 C (96.8 F) or >38.3 C: No SBP <90 or MAP <65 mmHG: No New Acute Mental Status Change: No Is the patient on CPAP, BIPAP,: No Physician Orders Basic Metabolic Panel (04/08/25 10:30) Urine Ethanol (04/08/25 10:30) Drug Screen (04/08/25 10:30) Continuous Ekg Monitoring 08,12,16,20,00,04 (04/08/25 10:30) Electrocardigram (04/08/25 10:30) Seizure Precautions (04/08/25 ) Vital Signs Date Time Temp Pulse Resp B/P (MAP) Pulse Ox O2 Delivery O2 Flow Rate FiO2 04/08/25 11:03 82 04/08/25 11:03 82 04/08/25 10:18 98.3 96 19 115/74 (88) 98 98.3 04/08/25 10:18 96 19 98 Room Air* 0 21 04/08/25 10:09 98.0 107 18 136/81 98 98.0 Departure 1 Departure Time of Disposition: 11:12 Impression: Primary Impression: Breakthrough seizure Disposition: LEFT AGAINST MEDICAL ADVICE Condition: Stable Critical Care Note Critical Care Time?: No Stability Stability form required: No Heart Score Heart Score: Heart Score Response (Comments) Value History N/A 0 EKG N/A 0 Age N/A 0 Risk Factors N/A 0 Troponin N/A 0 Total 0 I personally scribed for LUL GRULLON MD ([facility] on 04/08/25 at 10:34. Electronically submitted by Juan Miguel Wall ([email or web address]). I personally scribed for LUL GRULLON MD ([email or web address]) on 04/08/25 at 11:03. Electronically submitted by Juan Miguel Wall ([email or web address]). LUL GRULLON MD Apr 08, 2025 10:34
[2025-04-08 11:03] VITALS: PULSE 82
[2025-04-08 11:03] LABS: Chloride 107 mmol/L (98-107); Potassium 3.8 mmol/L (3.5-5.1); Sodium 143 mmol/L (136-145)
[2025-04-08 11:04] LABS: Anion Gap 12 (5-15); Calcium 8.0 mg/dL (8.7-10.4); Carbon Dioxide 24 mmol/L (20-31)
[2025-04-08 11:09] LABS: BUN/Creatinine Ratio 5.9 (10.0-20.0); Blood Urea Nitrogen 5 mg/dL (9-23); Glucose 79 mg/dL (74-106)
--- NOTE | 2025-04-08 18:34 | ECG ---
[facility] Test Date: 2025-04-08 Test Time: 10:48:25 Pat Name: TIM CRUZ Department: [facility] ED Patient ID: [facility]-[id number] Room: Gender: M Music Autographer: ROSALVA : 2000 Requested By: LUL GRULLON Order Number: [id number] Reading MD: Eduardo Diana Measurements Intervals [place] Rate: 82 P: 69 MT: 134 QRS: 94 QRSD: 91 T: 46 QT: 384 QTc: 449 Interpretive Statements Sinus rhythm Borderline right axis deviation Electronically Signed On 04-08-2025 22:34:16 PDT by Eduardo Diana Please click the below link to view image of tracing.
== END 2025-04-08 14:45 | disposition home or self-care (01) ==
LOC: ER 10:07
DX: G40.909 Epilepsy, unspecified, not intractable, without status epilepticus (principal); F12.90 Cannabis use, unspecified, uncomplicated; F10.90 Alcohol use, unspecified, uncomplicated; Z79.899 Other long term (current) drug therapy; Z79.1 Long term (current) use of non-steroidal anti-inflammatories (NSAID); Y90.9 Presence of alcohol in blood, level not specified
CPT/HCPCS: 36415; 80048; 80320; 82947; 93005

== ENCOUNTER 2025-04-24 07:49 | Emergency (ER) | payer MEDICAID ==
[~2025-04-24] VITALS: Ht 177.8 cm; Wt 72.7 kg
--- NOTE | 2025-04-24 08:22 | ED.PDOC ---
History of Present Illness HPI Comments 24-year-old male presents to the ER with a prior medical history of seizures and then chief complaint of a seizure. Patient reports on having a witnessed seizure at home by his friends. Patient states that he did not take any seizure medications yesterday and does not know why. Patient was here 11 days ago for a seizure and left against medical advice. Patient does have an an abrasion on his lip. Social history of heavy alcohol use, marijuana use. Denies chills, fever, N/V/D, SOB, CP. No other associated symptoms, modifiers, recent injuries or sick contacts present at this time. Chief Complaint: Seizure Time Seen by MD: 08:20 Primary Care Provider: UNKNOWN Reviewed Notes: Nurses Notes, Medications, Allergies Allergies: Coded Allergies: NO KNOWN ALLERGIES (Unverified , 12/04/16) Home Meds Active Scripts Ibuprofen (Ibuprofen) 600 Mg Tab, 1 TAB PO Q8HP PRN for 10 Days, #30 TAB 0 Refills Prov:JENN TOPETE NP 03/31/25 Acetaminophen (Acetaminophen) 500 Mg Tab, 500 MG PO Q8HP PRN for 10 Days, #30 TAB 0 Refills Prov:JENN TOPETE NP 03/31/25 Amoxicillin & Pot Clavulanate (Augmentin) 500 Mg Tab, 1 TAB PO BID, #14 TAB Prov:TERA TINSLEY MD 03/22/25 Ibuprofen (Ibuprofen) 800 Mg Tab, 1 TAB PO TID PRN, #20 TAB 0 Refills Prov:TERA TINSLEY MD 03/22/25 Levetiracetam (Keppra) 500 Mg Tab, 1000 MG PO BID for 30 Days, #120 TAB Prov:TERA TINSLEY MD 03/22/25 Mupirocin Calcium (Topical) (MUPIROCIN) 2 % Cre, 1 APPLIC EX BID for 7 Days, #15 GRAMS 0 Refills Prov:JENN TOPETE NP 07/15/24 Ibuprofen (Ibuprofen) 800 Mg Tab, 1 TAB PO TID for 7 Days, #21 TAB 0 Refills Prov:JENN TOPETE NP 07/15/24 Information Source: Patient Mode of Arrival: Ambulatory Severity: Moderate Timing: Hours Duration: Since onset, Hours Prehospital treatment: None Past Medical History PAST MEDICAL HISTORY: Seizures Surgical History: Denies all surgeries Family History Family History: Reviewed,noncontributory to illness Family History (Other): Seizures Social History Smoker: Non-Smoker Alcohol: Heavy Drugs: Marijuana Lives In: Home Constitutional: denies: chills, diaphoresis, fatigue, fever, malaise, sweats, weakness, others EENTM: reports: others (Abrasion on the lip); denies: blurred vision, double vision, ear bleeding, ear discharge, ear drainage, ear pain, ear ringing, eye pain, eye redness, hearing loss, mouth pain, mouth swelling, nasal discharge, nose bleeding, nose congestion, nose pain, photophobia, tearing, throat pain, throat swelling, voice changes Respiratory: denies: cough, hemoptysis, orthopnea, SOB at rest, shortness of breath, SOB with excertion, stridor, wheezing, others Cardiovascular: denies: chest pain, dizzy spells, diaphoresis, Dyspnea on exertion, edema, irregular heart beat, left arm pain, lightheadedness, palpitations, PND, syncope, others Gastrointestinal: denies: abdomen distended, abdominal pain, blood streaked bowels, constipated, diarrhea, dysphagia, difficulty swallowing, hematemesis, melena, nausea, poor appetite, poor fluid intake, rectal bleeding, rectal pain, vomiting, others Genitourinary: denies: burning, dysuria, flank pain, frequency, hematuria, incontinence, penile discharge, penile sore, pain, testicle pain, testicle swelling, urgency, others Neurological: reports: seizure; denies: dizziness, fainting, headache, left sided numbness, left sided weakness, numbness, paresthesia, pre-existing deficit, right sided numbness, right sided weakness, speech problems, tingling, tremors, weakness, others Musculoskeletal: denies: back pain, gout, joint pain, joint swelling, muscle pain, muscle stiffness, neck pain, others Integumetry: denies: bruises, change in color, change in hair/nails, dryness, laceration, lesions, lumps, rash, wounds, others Allergic/Immunocompromised: denies: Difficulty Healing, Frequent Infections, Hives, Itching, others Hematologic/Lymphatic: denies: anemia, blood clots, easy bleeding, easy bruising, swollen glands, others Endocrine: denies: excessive hunger, excessive sweating, excessive thirst, excessive urination, flushing, intolerance to cold, intolerance to heat, unexplained weight gain, unexplained weight loss, others Psychiatric: denies: anxiety, bipolar disorder, depression, hopeless, panic disorder, schizophrenia, sleepless, suicidal, others All Other Systems: Reviewed and Negative Physical Exam Exam Comments Abrasion on the lip General Appearance: No Apparent Distress, Normal HEENT: Normal ENT Inspection, Pharynx Normal, TMs Normal Neck: Full Range of Motion, Non-Tender, Normal, Normal Inspection Respiratory: Chest Non-Tender, Lungs Clear, No Accessory Muscle Use, No Respiratory Distress, Normal Breath Sounds Cardiovascular: No Edema, No JVD, No Murmur, No Gallop, Normal Peripheral Pulses, Regular Rate/Rhythm Breast Exam: Deferred Gastrointestinal: No Organomegaly, Non Tender, No Pulsatile Mass, Normal Bowel Sounds, Soft Genitalia: Deferred Pelvic: Deferred Rectal: Deferred Extremities: No calf tenderness, Normal capillary refill, Normal inspection, Normal range of motion, Non-tender, No pedal edema Musculoskeletal : Apperance: Normal Neurologic: Alert, aerosol line operator II-XII nml as Tested, No Motor Deficits, Normal Affect, Normal Mood, No Sensory Deficits, Seizure Cerebellar Function: Normal Reflexes: Normal Skin: Dry, Normal Color, Warm Lymphatic: No Adenopathy Was a procedure done? Was a procedure done?: No Differential Dx Considerations may include: Breakthrough seizure X-Ray, Labs, Meds, VS Vital Signs Date Time Temp Pulse Resp B/P (MAP) Pulse Ox O2 Delivery O2 Flow Rate FiO2 04/24/25 17:10 98.2 74 16 107/76 (86) 99 98.2 04/24/25 15:11 98.1 72 16 116/78 (91) 99 98.1 04/24/25 13:10 98.0 88 14 110/67 (81) 98.0 04/24/25 11:10 98.1 89 14 114/78 (90) 98 98.1 04/24/25 09:10 98.6 94 16 120/89 (99) 100 98.6 04/24/25 09:10 74 16 100 Room Air* 0 21 04/24/25 07:52 97.7 107 18 131/86 95 97.7 Lab Test 04/24/25 07:55 Range/Units POC Glucose 118 H 70-106 mg/dl Current Medications Medications (Trade) Dose Ordered Sig/[place] Route Start Time Stop Time Status Last Admin Sodium Chloride 1,000 ml @ 1,000 mls/hr Q1H ONCE IV 04/24/25 08:30 04/24/25 09:29 DC 04/24/25 09:22 Levetiracetam 100 ml @ 400 mls/hr ONCE ONCE IV 04/24/25 08:30 04/24/25 08:44 DC 04/24/25 09:22 Lorazepam (Ativan Inj) 2 mg ONCE ONCE IV 04/24/25 09:45 04/24/25 09:46 DC 04/24/25 09:39 Time of 1ST Reevaluation: 08:50 Reevaluation 1ST: Unchanged Patient Education/Counseling: Diagnosis, Treatment, Prognosis Family Education/Counseling: No Family Present SEPSIS Sepsis Screen Date sepsis recognized/suspect: Apr 24, 2025 Time Sepsis recognized/suspect: 075 Recent Procedure: No On Antibiotic Therapy: No Respiratory Rate >20: No Heart Rate >90: Yes Temp<36 C (96.8 F) or >38.3 C: No SBP <90 or MAP <65 mmHG: No New Acute Mental Status Change: No Is the patient on CPAP, BIPAP,: No Vital Signs Date Time Temp Pulse Resp B/P (MAP) Pulse Ox O2 Delivery O2 Flow Rate FiO2 04/24/25 17:10 98.2 74 16 107/76 (86) 99 98.2 04/24/25 15:11 98.1 72 16 116/78 (91) 99 98.1 04/24/25 13:10 98.0 88 14 110/67 (81) 98.0 04/24/25 11:10 98.1 89 14 114/78 (90) 98 98.1 04/24/25 09:10 98.6 94 16 120/89 (99) 100 98.6 04/24/25 09:10 74 16 100 Room Air* 0 21 04/24/25 07:52 97.7 107 18 131/86 95 97.7 Medications Medications Dose Ordered Sig/[place] Route Start Time Stop Time Status Last Admin Dose Admin Levetiracetam 100 ml @ 400 mls/hr ONCE ONCE IV 04/24/25 08:30 04/24/25 08:44 DC 04/24/25 09:22 Lorazepam 2 mg ONCE ONCE IV 04/24/25 09:45 04/24/25 09:46 DC 04/24/25 09:39 Sodium Chloride 1,000 ml @ 1,000 mls/hr Q1H ONCE IV 04/24/25 08:30 04/24/25 09:29 DC 04/24/25 09:22 Departure 1 Departure Time of Disposition: 17:47 (Patient has a breakthrough seizure about returned to baseline. Patient is feeling better and like to go home. We will discharge patient home with outpatient follow up) Impression: Primary Impression: Breakthrough seizure Disposition: 01 HOME / SELF CARE / HOMELESS Condition: Stable Additional Instructions: You had a breakthrough seizure today. It is important to take your seizure medication. You should stay well rested and well hydrated. You should follow up with your regular doctor within 1 week. If your symptoms worsen or you have any other concerns then please return to the emergency room. Discharged With: Self Critical Care Note Critical Care Time?: No Stability Stability form required: No I personally scribed for CATHY ESCOBAR MD ([email or web address]) on 04/24/25 at 08:22. Electronically submitted by Ismael Neil ([email or web address]). CATHY ESCOBAR MD Apr 24, 2025 08:22
[2025-04-24 09:10] VITALS: PULSE 74; RESP 16; O2SAT 100
[2025-04-24] MEDS: levETIRAcetam 1000 mg/100ml 100 ML IV ONE (09:22)
[2025-04-24] MEDS: SODIUM CHLORIDE 0.9% 1,000 ML IV ONE (09:22)
[2025-04-24] MEDS: LORazepam 2MG/ML-1ML VIAL ONE (09:37)
[2025-04-24] MEDS: LORazepam 2MG/ML-1ML VIAL IV ONE (09:39)
[2025-04-24 17:10] VITALS: TEMP 98.2
[2025-04-24 17:55] VITALS: BP 105/70; PULSE 86; RESP 16; O2SAT 99
== END 2025-04-24 18:52 | disposition home or self-care (01) ==
LOC: ER 07:49
DX: G40.909 Epilepsy, unspecified, not intractable, without status epilepticus (principal); Z79.899 Other long term (current) drug therapy
CPT/HCPCS: 82947; 96361; 96365; 96375; 99285; J1953; J2060; J7030; 82962

== ENCOUNTER 2025-05-10 09:36 | Inpatient (IN) | payer MEDICAID ==
[~2025-05-10] VITALS: Ht 172.7 cm; Wt 70.0 kg
--- NOTE | 2025-05-10 09:58 | ED.PDOC ---
History of Present Illness HPI Comments 24-year-old male with PMHx Seizures brought in by EMS presents with a chief complaint of seizure-activity. Patient states that he had a witnessed seizure. Patient has established history of seizures and takes Keppra for them. Patient reports that he is a heavy alcohol drinker and drinks everyday. Patient endorses his last drink was last night. Patient is alert and oriented x4 at this time. Chief Complaint: Seizure Time Seen by MD: 09:47 Primary Care Provider: UNKNOWN Reviewed Notes: Medications, Allergies Allergies: Coded Allergies: NO KNOWN ALLERGIES (Unverified , 12/04/16) Home Meds Active Scripts Ibuprofen (Ibuprofen) 600 Mg Tab, 1 TAB PO Q8HP PRN for 10 Days, #30 TAB 0 R efills Prov:JENN TOPETE NP 03/31/25 Acetaminophen (Acetaminophen) 500 Mg Tab, 500 MG PO Q8HP PRN for 10 Days, #30 TAB 0 Refills Prov:JENN TOPETE NP 03/31/25 Amoxicillin & Pot Clavulanate (Augmentin) 500 Mg Tab, 1 TAB PO BID, #14 TAB Prov:TERA TINSLEY MD 03/22/25 Ibuprofen (Ibuprofen) 800 Mg Tab, 1 TAB PO TID PRN, #20 TAB 0 Refills Prov:TERA TINSLEY MD 03/22/25 Levetiracetam (Keppra) 500 Mg Tab, 1000 MG PO BID for 30 Days, #120 TAB Prov:TERA TINSLEY MD 03/22/25 Mupirocin Calcium (Topical) (MUPIROCIN) 2 % Cre, 1 APPLIC EX BID for 7 Days, #15 GRAMS 0 Refills Prov:JENN TOPETE NP 07/15/24 Ibuprofen (Ibuprofen) 800 Mg Tab, 1 TAB PO TID for 7 Days, #21 TAB 0 Refills Prov:JENN TOPETE NP 07/15/24 Information Source: Patient, Emergency Med Personnel Mode of Arrival: EMS Severity: Moderate Timing: Hours Duration: Since onset Prehospital treatment: Hod Carrier Past Medical History PAST MEDICAL HISTORY: Seizures Surgical History: Denies all surgeries Family History Family History: Reviewed,noncontributory to illness Family History (Other): Seizures Social History Smoker: Non-Smoker Alcohol: Heavy Drugs: Marijuana Lives In: Home Constitutional: denies: chills, diaphoresis, fatigue, fever, malaise, sweats, weakness, others EENTM: denies: blurred vision, double vision, ear bleeding, ear discharge, ear drainage, ear pain, ear ringing, eye pain, eye redness, hearing loss, mouth pain, mouth swelling, nasal discharge, nose bleeding, nose congestion, nose pain, photophobia, tearing, throat pain, throat swelling, voice changes, others Respiratory: denies: cough, hemoptysis, orthopnea, SOB at rest, shortness of breath, SOB with excertion, stridor, wheezing, others Cardiovascular: denies: chest pain, dizzy spells, diaphoresis, Dyspnea on exertion, edema, irregular heart beat, left arm pain, lightheadedness, palpit ations, PND, syncope, others Gastrointestinal: denies: abdomen distended, abdominal pain, blood streaked b owels, constipated, diarrhea, dysphagia, difficulty swallowing, hematemesis, melena, nausea, poor appetite, poor fluid intake, rectal bleeding, rectal pain, vomiting, others Genitourinary: denies: burning, dysuria, flank pain, frequency, hematuria, incontinence, penile discharge, penile sore, pain, testicle pain, testicle swelling, urgency, others Neurological: reports: seizure; denies: dizziness, fainting, headache, left sided numbness, left sided weakness, numbness, paresthesia, pre-existing deficit, right sided numbness, right sided weakness, speech problems, tingling, tremors, weakness, others Musculoskeletal: denies: back pain, gout, joint pain, joint swelling, muscle pain, muscle stiffness, neck pain, others Integumetry: denies: bruises, change in color, change in hair/nails, dryness, laceration, lesions, lumps, rash, wounds, others Allergic/Immunocompromised: denies: Difficulty Healing, Frequent Infections, Hives, Itching, others Hematologic/Lymphatic: denies: anemia, blood clots, easy bleeding, easy bruising, swollen glands, others Endocrine: denies: excessive hunger, excessive sweating, excessive thirst, excessive urination, flushing, intolerance to cold, intolerance to heat, unexplained weight gain, unexplained weight loss, others Psychiatric: denies: anxiety, bipolar disorder, depression, hopeless, panic di sorder, schizophrenia, sleepless, suicidal, others All Other Systems: Reviewed and Negative Physical Exam General Appearance: Moderate Distress, Normal HEENT: Normal ENT Inspection, Pharynx Normal, TMs Normal Neck: Full Range of Motion, Non-Tender, Normal, Normal Inspection Respiratory: Chest Non-Tender, Lungs Clear, No Accessory Muscle Use, No Respiratory Distress, Normal Breath Sounds Cardiovascular: No Edema, No JVD, No Murmur, No Gallop, Normal Peripheral Pulses, Regular Rate/Rhythm Breast Exam: Deferred Gastrointestinal: No Organomegaly, Non Tender, No Pulsatile Mass, Normal Bowel Sounds, Soft Genitalia: Deferred Pelvic: Deferred Rectal: Deferred Extremities: No calf tenderness, Normal capillary refill, Normal inspection, Normal range of motion, Non-tender, No pedal edema Musculoskeletal : Apperance: Normal Neurologic: Alert, study lead II-XII nml as Tested, No Motor Deficits, Normal Affect, Normal Mood, No Sensory Deficits Cerebellar Function: NOT DONE Reflexes: NOT DONE Skin: Dry, Normal Color, Warm Peripheral Pulses: 3+ Radial (R), 3+ Radial (L) Lymphatic: No Adenopathy Was a procedure done? Was a procedure done?: No Differential Dx Considerations may include: Seizure Electrolyte imbalance X-Ray, Labs, Meds, VS Vital Signs Date Time Temp Pulse Resp B/P (MAP) Pulse Ox O2 Delivery O2 Flow Rate FiO2 05/10/25 12:00 65 21 98/64 (75) 94 05/10/25 12:00 102 05/10/25 10:00 Room Air* 0 21 05/10/25 10:00 98.6 92 17 121/85 (97) 94 98.6 05/10/25 09:42 98.2 105 20 131/88 98 98.2 Lab Test 05/10/25 10:17 05/10/25 10:08 05/10/25 10:00 Range/Units White Blood Count 9.9 4.4-10.8 10^3/uL Red Blood Count 5.03 4.5-5.90 10^6/uL Hemoglobin 14.9 13.5-17.5 g/dL Hematocrit 44.3 41.0-53.0 % Mean Corpuscular Volume 88.0 80.0-100.0 fL Mean Corpuscular Hemoglobin 29.6 28.0-32.0 pg Mean Corpuscular Hemoglobin Concent 33.6 32.0-36.0 g/dL Red Cell Distribution Width 14.4 H 11.8-14.3 % Platelet Count 396 140-450 10^3/uL Mean Platelet Volume 7.0 6.9-10.8 fL Neutrophils (%) (Auto) 78.0 37.0-80.0 % Lymphocytes (%) (Auto) 15.3 10.0-50.0 % Monocytes (%) (Auto) 4.3 0.0-12.0 % Eosinophils (%) (Auto) 1.7 0.0-7.0 % Basophils (%) (Auto) 0.7 0.0-2.0 % Neutrophils # (Auto) 7.7 1.6-8.6 10 ^3/uL Lymphocytes # (Auto) 1.5 0.4-5.4 10 ^3/uL Monocytes # (Auto) 0.4 0-1.3 10 ^3/uL Eosinophils # (Auto) 0.2 0-0.8 10 ^3/uL Basophils # (Auto) 0.1 0-0.2 10 ^3/uL Nucleated Red Blood Cells 0.0 % Sodium Level 146 H 136-145 mmol/L Potassium Level 4.0 3.5-5.1 mmol/L Chloride Level 110 H 98-107 mmol/L Carbon Dioxide Level 24 20-31 mmol/L Anion Gap 12 5-15 Blood Urea Nitrogen < 5 L 9-23 mg/dL Creatinine 0.81 0.700-1.30 mg/dL Glomerular Filtration Rate Calc 126 >90 mL/min BUN/Creatinine Ratio 6.2 L 10.0-20.0 Serum Glucose 81 74-106 mg/dL Calcium Level 8.1 L 8.7-10.4 mg/dL Magnesium Level 2.0 1.6-2.6 mg/dL Plasma/Serum Blood Alcohol 21.9 H <10 mg/dL POC Glucose 94 70-106 mg/dl Urine Opiates Screen Neg NEGATIVE Urine Fentanyl Screen Neg NEGATIVE Urine Barbiturates Screen Neg NEGATIVE Urine Phencyclidine Screen Neg NEGATIVE Urine Amphetamines Screen Neg NEGATIVE Urine Benzodiazepines Screen Neg NEGATIVE Urine Cocaine Screen Neg NEGATIVE Urine Cannabinoids Screen Pos NEGATIVE Current Medications Medications (Trade) Dose Ordered Sig/[place] Route Start Time Stop Time Status Last Admin Sodium Chloride 1,000 ml @ 1,000 mls/hr Q1H ONCE IV 05/10/25 10:00 05/10/25 10:59 DC 05/10/25 10:01 Sodium Chloride 1,000 ml @ 150 mls/hr Q6H40M ONCE IV 05/10/25 10:00 05/10/25 16:39 DC 05/10/25 11:05 Lorazepam (Ativan Inj) 1 mg ONCE ONCE IV 05/10/25 10:00 05/10/25 10:01 DC 05/10/25 10:13 Levetiracetam 100 ml @ 400 mls/hr ONCE ONCE IV 05/10/25 10:00 05/10/25 10:14 DC 05/10/25 10:13 Sodium Chloride 1,000 ml @ 1,000 mls/hr Q1H ONCE IV 05/10/25 12:00 05/10/25 12:59 DC 05/10/25 12:58 Patient alert. Seizure. Witnessed by family. Vitals stable. Establish intravenous access. Was given fluids. Was given Ativan. Was given Keppra. He does drink regularly. Has marijuana in his system. No sign of any trauma. Continue monitoring. Time of 1ST Reevaluation: 10:17 Reevaluation 1ST: Unchanged Patient Education/Counseling: Diagnosis, Treatment, Need For Follow Up Family Education/Counseling: No Family Present SEPSIS Sepsis Screen Date sepsis recognized/suspect: May 10, 2025 Time Sepsis recognized/suspect: 938 Recent Procedure: No On Antibiotic Therapy: No Respiratory Rate >20: No Heart Rate >90: Yes Temp<36 C (96.8 F) or >38.3 C: No SBP <90 or MAP <65 mmHG: No New Acute Mental Status Change: No Is the patient on CPAP, BIPAP,: No Physician Orders Hod Carrier (05/10/25 11:57) Seizure Precautions (05/10/25 11:57) Folic Acid... (05/10/25 18:00) Levetiracetam (Keppra) (05/10/25 12:01) 2 Gm Sodium Diet (05/10/25 Lunch) Ondansetron Hcl (Zofran) (05/10/25 12:15) Enoxaparin Sodium (Lovenox) (05/11/25 10:00) Complete Blood Count (05/11/25 04:00) Comprehensive Metabolic Panel (05/11/25 04:00) Condition: Fair (05/10/25 12:01) Acetaminophen Tablet (Tylenol Tablet) (05/10/25 12:15) Bedrest With Bathroom Privileg (05/10/25 12:01) Nitroglycerin Sublingual (Ntrostat Subli (05/10/25 12:15) Morphine Sulfate Injection (05/10/25 12:15) Stat Ekg For Chest Pain (05/10/25 12:01) Notify Of Changes From Base (05/10/25 12:01) Wheel And Caster Repairer For 24 Hours (05/10/25 12:01) Emergency Dysrhythmia Protocol (05/10/25 12:01) Rhythm Strips Once Every Shift (05/10/25 12:01) Oxygen By Nasal Cannula (05/10/25 12:01) Admit (05/10/25 12:03) Vital Signs Date Time Temp Pulse Resp B/P (MAP) Pulse Ox O2 Delivery O2 Flow Rate FiO2 05/10/25 12:00 65 21 98/64 (75) 94 05/10/25 12:00 102 05/10/25 10:00 Room Air* 0 21 05/10/25 10:00 98.6 92 17 121/85 (97) 94 98.6 05/10/25 09:42 98.2 105 20 131/88 98 98.2 Laboratory Tests Test 05/10/25 10:17 White Blood Count 9.9 10^3/uL (4.4-10.8) Medications Medications Dose Ordered Sig/[place] Route Start Time Stop Time Status Last Admin Dose Admin Levetiracetam 100 ml @ 400 mls/hr ONCE ONCE IV 05/10/25 10:00 05/10/25 10:14 DC 05/10/25 10:13 Lorazepam 1 mg ONCE ONCE IV 05/10/25 10:00 05/10/25 10:01 DC 05/10/25 10:13 Sodium Chloride 1,000 ml @ 150 mls/hr Q6H40M ONCE IV 05/10/25 10:00 05/10/25 16:39 DC 05/10/25 11:05 Sodium Chloride 1,000 ml @ 1,000 mls/hr Q1H ONCE IV 05/10/25 10:00 05/10/25 10:59 DC 05/10/25 10:01 Sodium Chloride 1,000 ml @ 1,000 mls/hr Q1H ONCE IV 05/10/25 12:00 05/10/25 12:59 DC 05/10/25 12:58 Departure 1 Departure Time of Disposition: 10:58 Impression: Primary Impression: Seizure Disposition: ADMITTED INPATIENT Admit to: Med Surg Condition: Guarded Critical Care Note Critical Care Time?: No Stability Stability form required: No Heart Score Heart Score: Heart Score Response (Comments) Value History N/A 0 EKG N/A 0 Age N/A 0 Risk Factors N/A 0 Troponin N/A 0 Total 0 I personally scribed for JONG GOLDSTEIN MD ([email or web address]) on 05/10/25 at 09:58. Electronically submitted by Juan Miguel Wall ([email or web address]). JONG GOLDSTEIN MD May 10, 2025 09:58
[2025-05-10] MEDS: SODIUM CHLORIDE 0.9% 1,000 ML IV ONE ×2 (10:01→11:05)
[2025-05-10] MEDS: levETIRAcetam 1000 mg/100ml 100 ML IV ONE (10:13)
[2025-05-10] MEDS: LORazepam 2MG/ML-1ML VIAL IV ONE (10:13)
[2025-05-10 10:34] LABS: Cannabinoid Screen, Urine Pos (NEGATIVE)
[2025-05-10 10:36] LABS: Amphetamine Screen, Urine Neg (NEGATIVE); Barbiturate Scree,Urine Neg (NEGATIVE); Benzodiazephine Screen, Urine Neg (NEGATIVE); Cocaine Screen, Urine Neg (NEGATIVE); Opiate Scree,Urine Neg (NEGATIVE); Phencyclidine Screen, Urine Neg (NEGATIVE)
[2025-05-10 10:36] LABS: Hematocrit 44.3 % (41.0-53.0); Hemoglobin 14.9 g/dL (13.5-17.5); Mean Corpuscular Hemoglobin 29.6 pg (28.0-32.0); Mean Corpuscular Volume 88.0 fL (80.0-100.0); Nucleated Red Blood Cells % 0.0 %
[2025-05-10 11:21] LABS: Potassium 4.0 mmol/L (3.5-5.1)
[2025-05-10 11:22] LABS: Anion Gap 12 (5-15); Carbon Dioxide 24 mmol/L (20-31)
[2025-05-10 11:25] LABS: Calcium 8.1 mg/dL (8.7-10.4); Chloride 110 mmol/L (98-107); Sodium 146 mmol/L (136-145)
[2025-05-10 11:27] LABS: Glucose 81 mg/dL (74-106)
[2025-05-10 11:35] LABS: BUN/Creatinine Ratio 6.2 (10.0-20.0); Blood Urea Nitrogen < 5 mg/dL (9-23)
[2025-05-10] MEDS ORDERED: ACETAMINOPHEN 325 MG TAB PO PRN (12:15)
[2025-05-10] MEDS ORDERED: ONDANSETRON HCL 4 MG/2 ML VIAL IV PRN (12:15)
[2025-05-10] MEDS ORDERED: NITROGLYCERIN 0.4 MG SL TAB SL PRN (12:15)
[2025-05-10] MEDS ORDERED: MORPHINE SULFATE INJ 2 MG/ml SYRG IV PRN (12:15)
[2025-05-10] MEDS: SOD CHL 0.45% 1,000 ML IV ONE (12:58)
--- NOTE | 2025-05-10 13:51 | DVHHP2 ---
History of Present Illness Reason for Visit: Breakthrough seizure likely due to alcohol intoxication History of Present Illness This is a 24-year-old male with PMHx Seizures brought in by EMS presents with a chief complaint of seizure-activity. Patient states that he had a witnessed seizure. Patient has established history of seizures and takes Keppra for them. Patient reports that he is a heavy alcohol drinker and drinks everyday. Patient endorses his last drink was last night. Patient is alert and oriented x4 at this time. The patient is concerned about his symptoms and would like to be further evaluated and treated. The patient will be admitted under hospitalist care to the telemetry unit for continuous monitoring. The patient denies fever, chills, headache, palpitations, shortness of breath, chest pain, nausea, vomiting, abdominal pain, diarrhea, constipation and other associated symptoms. The plan has been discussed with the patient in which all questions concerns have been addressed. 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 Past Surgical History: None Family History: None Smoke: No ALCOHOL: heavy Drugs: Marijuana Lives: with Family Domestic Violence: Neg Review of Systems Neurological: Seizures Allergies: Coded Allergies: NO KNOWN ALLERGIES (Unverified , 12/04/16) Medications Current Medications Medications Dose Ordered Sig/Albina Route Start Time Stop Time Status Last Admin Dose Admin Folic Acid 1 mg/ Magnesium Sulfate 8 meq/ Multivitamins 10 ml/Thiamine HCl 100 mg/Sodium Chloride 1,013.2 ml @ 126.247 mls/hr DAILY@1800 INJ 05/10/25 18:00 Ondansetron HCl 4 mg Q4HP PRN IV 05/10/25 12:15 Enoxaparin Sodium 40 mg DAILY SC 05/11/25 10:00 Acetaminophen 650 mg Q6HP PRN PO 05/10/25 12:15 Nitroglycerin 0.4 mg Q5MINP PRN SL 05/10/25 12:15 Morphine Sulfate 2 mg Q30M PRN IV 05/10/25 12:15 Levetiracetam 100 ml @ 400 mls/hr BID IV 05/10/25 22:00 Exam Vital Signs Vital Signs Date Time Temp Pulse Resp B/P (MAP) Pulse Ox O2 Delivery O2 Flow Rate FiO2 05/10/25 12:00 65 21 98/64 (75) 94 05/10/25 10:00 Room Air* 0 21 05/10/25 10:00 98.6 98.6 General Appearance: Alert, Oriented X3, Cooperative, No acute distress HEENT: Atraumatic, PERRLA, Mucous membr. moist/pink Respiratory: Clear to auscultation, Normal air movement Cardiovascular: Regular rate, Normal S1, Normal S2, No murmurs Abdominal: Normal bowel sounds, Soft, No tenderness, No hepatospenomegaly Extremities: No clubbing, No cyanosis, No edema, Normal pulses Skin: No rashes, No breakdown Neuro: Normal gait, Normal speech, Strength at 5/5 X4 ext, Normal tone, Cranial nerves 3-12 NL Psych/Mental Status: Mental status NL, Mood NL Labs/Xrays Labs Test 05/10/25 12:34 05/10/25 10:17 05/10/25 10:08 05/10/25 10:00 Range/Units White Blood Count 9.9 4.4-10.8 10^3/uL Red Blood Count 5.03 4.5-5.90 10^6/uL Hemoglobin 14.9 13.5-17.5 g/dL Hematocrit 44.3 41.0-53.0 % Mean Corpuscular Volume 88.0 80.0-100.0 fL Mean Corpuscular Hemoglobin 29.6 28.0-32.0 pg Mean Corpuscular Hemoglobin Concent 33.6 32.0-36.0 g/dL Red Cell Distribution Width 14.4 H 11.8-14.3 % Platelet Count 396 140-450 10^3/uL Mean Platelet Volume 7.0 6.9-10.8 fL Neutrophils (%) (Auto) 78.0 37.0-80.0 % Lymphocytes (%) (Auto) 15.3 10.0-50.0 % Monocytes (%) (Auto) 4.3 0.0-12.0 % Eosinophils (%) (Auto) 1.7 0.0-7.0 % Basophils (%) (Auto) 0.7 0.0-2.0 % Neutrophils # (Auto) 7.7 1.6-8.6 10 ^3/uL Lymphocytes # (Auto) 1.5 0.4-5.4 10 ^3/uL Monocytes # (Auto) 0.4 0-1.3 10 ^3/uL Eosinophils # (Auto) 0.2 0-0.8 10 ^3/uL Basophils # (Auto) 0.1 0-0.2 10 ^3/uL Nucleated Red Blood Cells 0.0 % Sodium Level 146 H 136-145 mmol/L Potassium Level 4.0 3.5-5.1 mmol/L Chloride Level 110 H 98-107 mmol/L Carbon Dioxide Level 24 20-31 mmol/L Anion Gap 12 5-15 Blood Urea Nitrogen < 5 L 9-23 mg/dL Creatinine 0.81 0.700-1.30 mg/dL Glomerular Filtration Rate Calc 126 >90 mL/min BUN/Creatinine Ratio 6.2 L 10.0-20.0 Serum Glucose 81 74-106 mg/dL Calcium Level 8.1 L 8.7-10.4 mg/dL Magnesium Level 2.0 1.6-2.6 mg/dL Plasma/Serum Blood Alcohol 21.9 H <10 mg/dL POC Glucose 94 70-106 mg/dl Urine Opiates Screen Neg NEGATIVE Urine Fentanyl Screen Neg NEGATIVE Urine Barbiturates Screen Neg NEGATIVE Urine Phencyclidine Screen Neg NEGATIVE Urine Amphetamines Screen Neg NEGATIVE Urine Benzodiazepines Screen Neg NEGATIVE Urine Cocaine Screen Neg NEGATIVE Urine Cannabinoids Screen Pos NEGATIVE SEPSIS Sepsis Screen Date sepsis recognized/suspect: May 10, 2025 Time Sepsis recognized/suspect: 1000 Recent Procedure: No On Antibiotic Therapy: No Respiratory Rate >20: No Heart Rate >90: No Temp<36 C (96.8 F) or >38.3 C: No SBP <90 or MAP <65 mmHG: No New Acute Mental Status Change: No Is the patient on CPAP, BIPAP,: No Physician Orders Sodium Chloride 0.9% (05/10/25 10:00) Diesel Engine Erector (05/10/25 11:57) Seizure Precautions (05/10/25 11:57) Folic Acid... (05/10/25 18:00) Levetiracetam (Keppra) (05/10/25 12:01) 2 Gm Sodium Diet (05/10/25 Lunch) Ondansetron Hcl (Zofran) (05/10/25 12:15) Enoxaparin Sodium (Lovenox) (05/11/25 10:00) Complete Blood Count (05/11/25 04:00) Comprehensive Metabolic Panel (05/11/25 04:00) Condition: Fair (05/10/25 12:01) Acetaminophen Tablet (Tylenol Tablet) (05/10/25 12:15) Bedrest With Bathroom Privileg (05/10/25 12:01) Nitroglycerin Sublingual (Ntrostat Subli (05/10/25 12:15) Morphine Sulfate Injection (05/10/25 12:15) Stat Ekg For Chest Pain (05/10/25 12:01) Notify Md Of Changes From Base (05/10/25 12:01) Paperhanger For 24 Hours (05/10/25 12:01) Emergency Dysrhythmia Protocol (05/10/25 12:01) Rhythm Strips Once Every Shift (05/10/25 12:01) Oxygen By Nasal Cannula (05/10/25 12:01) Admit (05/10/25 12:03) Levetiracetam 500 Mg/100ml (Levetiraceta (05/10/25 22:00) Vital Signs Date Time Temp Pulse Resp B/P (MAP) Pulse Ox O2 Delivery O2 Flow Rate FiO2 05/10/25 12:00 65 21 98/64 (75) 94 05/10/25 10:00 Room Air* 0 21 05/10/25 10:00 98.6 92 17 121/85 (97) 94 98.6 05/10/25 09:42 98.2 105 20 131/88 98 98.2 Laboratory Tests Test 05/10/25 10:17 White Blood Count 9.9 10^3/uL (4.4-10.8) Medications Medications Dose Ordered Sig/Albina Route Start Time Stop Time Status Last Admin Dose Admin Levetiracetam 100 ml @ 400 mls/hr ONCE ONCE IV 05/10/25 10:00 05/10/25 10:14 DC 05/10/25 10:13 400 MLS/HR Lorazepam 1 mg ONCE ONCE IV 05/10/25 10:00 05/10/25 10:01 DC 05/10/25 10:13 1 MG Sodium Chloride 1,000 ml @ 150 mls/hr Q6H40M ONCE IV 05/10/25 10:00 05/10/25 16:39 05/10/25 11:05 150 MLS/HR Sodium Chloride 1,000 ml @ 1,000 mls/hr Q1H ONCE IV 05/10/25 10:00 05/10/25 10:59 DC 05/10/25 10:01 1,000 MLS/HR Sodium Chloride 1,000 ml @ 1,000 mls/hr Q1H ONCE IV 05/10/25 12:00 05/10/25 12:59 DC 05/10/25 12:58 1,000 MLS/HR Assessment/Plan Assessment/Plan Breakthrough seizure likely due to alcohol intoxication--patient presents with seizure activity today Last seizure episode about one week ago Patient reports taking prescribed Keppra Seizure pad in place The patient received IV Keppra and IV hydration in the ER Admit to telemetry unit for continuous cardiac monitoring Reviewed CBC which is normal Reviewed BMP sodium 146 Reviewed tox screen which shows positive cannabinoids and elevated alcohol level Consider to consult neurology for evaluation and management if needed Seizure precaution Aspiration precaution Neurochecks every shift Ativan as needed IV Keppra 500 mg IV piggyback b.i.d. IV hydration Alcohol intoxication IV banana bag IV hydration Alcohol abuse Counseling Reconcile home medication DVT prophylaxis PUD prophylaxis not indicated no history of GERD Labs in a.m. 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 PHA 05/10/25 In Process 18:00 Levetiracetam (Keppra) LAB 05/10/25 In Process 12:01 2 Gm Sodium Diet DIET 05/10/25 Transmitted Lunch Ondansetron Hcl PHA 05/10/25 In Process (Zofran) 12:15 Enoxaparin Sodium PHA 05/11/25 In Process (Lovenox) 10:00 Complete Blood Count LAB 05/11/25 Verified 04:00 Comprehensive LAB 05/11/25 Verified Metabolic Panel 04:00 Condition: Fair TED 05/10/25 In Process 12:01 Acetaminophen Tablet PHA 05/10/25 In Process (Tylenol Tablet) 12:15 Bedrest With Bathroom TED 05/10/25 In Process Privileg 12:01 Nitroglycerin PHA 05/10/25 In Process Sublingual (Ntrostat 12:15 Morphine Sulfate PHA 05/10/25 In Process Injection 12:15 Stat Ekg For Chest TED 05/10/25 In Process Pain 12:01 Notify Md Of Changes [facility] 05/10/25 In Process From Base 12:01 Paperhanger For [facility] 05/10/25 In Process 24 Hours 12:01 Emergency Dysrhythmia [facility] 05/10/25 In Process Protocol 12:01 Rhythm Strips Once [facility] 05/10/25 In Process Every Shift 12:01 Oxygen By Nasal RT 05/10/25 Transmitted Cannula 12:01 Admit ADMIT 05/10/25 Transmitted 12:03 Levetiracetam 500 PHA 05/10/25 In Process Mg/100ml (Levetiraceta 22:00 Date of Service: May 10, 2025 Billing Provider: ОЛЬГА MCNAIR Common Visit Codes: [id number] INP/OBS CARE (HIGH) ОЛЬГА MCNAIR May 10, 2025 13:51
[2025-05-10 20:00] VITALS: BP 117/77
[2025-05-10] MEDS: FOLIC ACID 1 MG, MAGNESIUM SULF SDV 50% 8 MEQ, MULTIPLE VITAMIN 10 ML, THIAMINE INJ 100... INJ SCH (20:15)
[2025-05-10] MEDS: levETIRAcetam 500 mg/100ml 100 ML IV SCH (22:00)
[2025-05-11 05:54] LABS: Hematocrit 42.2 % (41.0-53.0); Hemoglobin 14.6 g/dL (13.5-17.5); Mean Corpuscular Hemoglobin 30.0 pg (28.0-32.0); Mean Corpuscular Volume 86.5 fL (80.0-100.0); Nucleated Red Blood Cells % 0.1 %
[2025-05-11 06:06] LABS: Alanine Aminotransferase 28 U/L (7-40); Albumin 3.4 g/dL (3.2-4.8); Alkaline Phosphatase 56 U/L (46-116); Anion Gap 6 (5-15); Bilirubin, Total 0.6 mg/dL (0.2-1.0); Carbon Dioxide 28 mmol/L (20-31); Chloride 107 mmol/L (98-107); Glucose 83 mg/dL (74-106); Potassium 3.6 mmol/L (3.5-5.1); Sodium 141 mmol/L (136-145); Total Protein 6.3 g/dL (5.7-8.2)
[2025-05-11 06:10] LABS: BUN/Creatinine Ratio 6.5 (10.0-20.0); Blood Urea Nitrogen < 5 mg/dL (9-23); Calcium 8.1 mg/dL (8.7-10.4)
[2025-05-11 07:48] VITALS: RESP 16; O2SAT 96
[2025-05-11 10:12] VITALS: TEMP 98.7
[2025-05-11] MEDS: ENOXAPARIN SOD 40 MG/0.4 ML SYRINGE SC SCH (10:46)
[2025-05-11] MEDS ORDERED: LORazepam 2MG/ML-1ML VIAL IV PRN (12:00)
[2025-05-11] MEDS ORDERED: THIAMINE HCL 100 MG TAB PO SCH (12:00)
[2025-05-11 13:00] VITALS: PULSE 77; RESP 18; O2SAT 98
[2025-05-11] MEDS: D5W/SOD CHL 0.45% 1,000 ML IV ONE (13:11)
[2025-05-11] MEDS: THIAMINE 100mg/ml INJ (200mg/2ml VIAL) IV ONE (13:11)
--- NOTE | 2025-05-11 13:13 | DVHPN2 ---
Reviewed: H&P Changes from previous H/P or p: No Changes General: Per HPI Objective Vitals Vital Signs Date Time Temp Pulse Resp B/P (MAP) Pulse Ox O2 Delivery O2 Flow Rate FiO2 05/11/25 10:12 98.7 56 18 99 98.7 05/11/25 07:48 Room Air* 0 21 05/10/25 20:00 117/77 (90) Intake/Output Intake and Output 05/11/25 07:00 Intake Total 1100 ml Balance 1100 ml Intake IV Total 1100 ml Exam General Appearance: Alert, Oriented X3, Cooperative, No acute distress HEENT: Atraumatic, PERRLA, Mucous membr. moist/pink Respiratory: Clear to auscultation, Normal air movement Cardiovascular: Regular rate, Normal S1, Normal S2, No murmurs Abdominal: Normal bowel sounds, Soft, No tenderness, No hepatospenomegaly Extremities: No clubbing, No cyanosis, No edema, Normal pulses Skin: No rashes, No breakdown Neuro: Normal gait, Normal speech, Strength at 5/5 X4 ext, Normal tone, Cranial nerves 3-12 NL. ciwa low Psych/Mental Status: Mental status NL, Mood NL Medications Current Medications Medications Dose Ordered Sig/Albina Route Start Time Stop Time Status Last Admin Dose Admin Ondansetron HCl 4 mg Q4HP PRN IV 05/10/25 12:15 Enoxaparin Sodium 40 mg DAILY SC 05/11/25 10:00 05/11/25 10:46 40 MG Acetaminophen 650 mg Q6HP PRN PO 05/10/25 12:15 Nitroglycerin 0.4 mg Q5MINP PRN SL 05/10/25 12:15 Morphine Sulfate 2 mg Q30M PRN IV 05/10/25 12:15 Levetiracetam 100 ml @ 400 mls/hr BID IV 05/10/25 22:00 05/11/25 10:45 400 MLS/HR Lorazepam 1 mg Q2HPRN PRN IV 05/11/25 12:00 Folic Acid 1 mg DAILY PO 05/12/25 10:00 Thiamine HCl 100 mg DAILY PO 05/12/25 10:00 Laboratory Results Laboratory Tests 05/11/25 05:11 Chemistry Test 05/11/25 05:11 Albumin 3.4 g/dL (3.2-4.8) Calcium Level 8.1 mg/dL (8.7-10.4) L Total Protein 6.3 g/dL (5.7-8.2) LFT Test 05/11/25 05:11 Alanine Aminotransferase (ALT) 28 U/L (7-40) Alkaline Phosphatase 56 U/L (46-116) Aspartate Amino Transferase (AST) 29 U/L (13-40) Total Bilirubin 0.6 mg/dL (0.2-1.0) Labs and/or images reviewed: Labs reviewed by me, Image(s) reviewed by me Assessment/Plan Assessment/Plan 24-year-old male with PMHx Seizures brought in by EMS presents with a chief complaint of seizure-activity. Patient states that he had a witnessed seizure. Patient has established history of seizures and takes Keppra for them. Patient reports that he is a heavy alcohol drinker and drinks everyday. Patient endorses his last drink was last night. Patient is alert and oriented x4 at this time. The patient is concerned about his symptoms and would like to be further evaluated and treated. 05/11: Patient's CIWA score feels well. Patient says he is compliant with his Keppra 500 mg twice daily, apparently diagnosed has a epileptic disorder but patient is unable to give me time last seen by neurologist also does not know the name of his primary neurologist. Concern for noncompliance and/or possible alcohol withdrawal seizure. Patient does endorse that he does drink every day, at admit patient had positive but alcohol and has been taking alcohol every day, we will have to monitor patient for 48 hours for seizure free see if protocol patient is A&O x4 but does appear to want to leave, possible chance patient will AMA. 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, on anticonvulsant medical noncompliance etoh dependence plan ciwa protocol iv thimaine x1, then daily po iv folic x1, then daily po iv banaana bag x1 anticonvulsatn levels and monitor continue anticonvultsants tele fullcode Plan discussed with: Patient My Orders Orders - MAGALI PRICE MD Procedure Category Date Status Time Lorazepam 2mg/Ml Inj PHA 05/11/25 In Process (Ativan Inj) 12:00 Etoh Withdrawal TED 05/11/25 In Process Assessment 11:54 Etoh Withdrawal TED 05/11/25 In Process Assessment 11:54 Folic Acid Tablet PHA 05/12/25 In Process 10:00 D5w/Sod Chl 0.45% PHA 05/11/25 In Process (D5w 1/2ns) 12:00 Thiamine Tab PHA 05/12/25 In Process 10:00 Date of Service: May 11, 2025 Billing Provider: MAGALI PRICE MD Common Visit Codes: [id number] INP/OBS CARE(HIGH) MAGALI PRICE MD May 11, 2025 13:13
--- NOTE | 2025-05-11 20:22 | DVHDS2 ---
Discharge Summary Date of Admission May 10, 2025 at 12:03 Date of Discharge: May 11, 2025 Labs/Diagnostic Data: Laboratory Results Test 05/11/25 05:11 05/10/25 12:34 05/10/25 10:17 05/10/25 10:08 White Blood Count 10.1 10^3/uL (4.4-10.8) Red Blood Count 4.88 10^6/uL (4.5-5.90) Hemoglobin 14.6 g/dL (13.5-17.5) Hematocrit 42.2 % (41.0-53.0) Mean Corpuscular Volume 86.5 fL (80.0-100.0) Mean Corpuscular Hemoglobin 30.0 pg (28.0-32.0) Mean Corpuscular Hemoglobin Concent 34.7 g/dL (32.0-36.0) Red Cell Distribution Width 14.1 % (11.8-14.3) Platelet Count 424 10^3/uL (140-450) Mean Platelet Volume 7.2 fL (6.9-10.8) Neutrophils (%) (Auto) 70.6 % (37.0-80.0) Lymphocytes (%) (Auto) 19.8 % (10.0-50.0) Monocytes (%) (Auto) 5.9 % (0.0-12.0) Eosinophils (%) (Auto) 2.6 % (0.0-7.0) Basophils (%) (Auto) 1.1 % (0.0-2.0) Neutrophils # (Auto) 7.2 10 ^3/uL (1.6-8.6) Lymphocytes # (Auto) 2.0 10 ^3/uL (0.4-5.4) Monocytes # (Auto) 0.6 10 ^3/uL (0-1.3) Eosinophils # (Auto) 0.3 10 ^3/uL (0-0.8) Basophils # (Auto) 0.1 10 ^3/uL (0-0.2) Nucleated Red Blood Cells 0.1 % Sodium Level 141 mmol/L (136-145) Potassium Level 3.6 mmol/L (3.5-5.1) Chloride Level 107 mmol/L (98-107) Carbon Dioxide Level 28 mmol/L (20-31) Anion Gap 6 (5-15) Blood Urea Nitrogen < 5 mg/dL (9-23) Creatinine 0.77 mg/dL (0.700-1.30) Glomerular Filtration Rate Calc 128 mL/min (>90) BUN/Creatinine Ratio 6.5 (10.0-20.0) Serum Glucose 83 mg/dL (74-106) Calcium Level 8.1 mg/dL (8.7-10.4) Total Bilirubin 0.6 mg/dL (0.2-1.0) Aspartate Amino Transferase (AST) 29 U/L (13-40) Alanine Aminotransferase (ALT) 28 U/L (7-40) Alkaline Phosphatase 56 U/L (46-116) Total Protein 6.3 g/dL (5.7-8.2) Albumin 3.4 g/dL (3.2-4.8) Magnesium Level 2.0 mg/dL (1.6-2.6) Plasma/Serum Blood Alcohol 21.9 mg/dL (<10) POC Glucose 94 mg/dl (70-106) Test 05/10/25 10:00 Urine Opiates Screen Neg (NEGATIVE) Urine Fentanyl Screen Neg (NEGATIVE) Urine Barbiturates Screen Neg (NEGATIVE) Urine Phencyclidine Screen Neg (NEGATIVE) Urine Amphetamines Screen Neg (NEGATIVE) Urine Benzodiazepines Screen Neg (NEGATIVE) Urine Cocaine Screen Neg (NEGATIVE) Urine Cannabinoids Screen Pos (NEGATIVE) Other Laboratory Tests 05/11/25 05:11 Brief Hx & Hospital Course: 24-year-old male with PMHx Seizures brought in by EMS presents with a chief complaint of seizure-activity. Patient states that he had a witnessed seizure. Patient has established history of seizures and takes Keppra for them. Patient reports that he is a heavy alcohol drinker and drinks everyday. Patient endorses his last drink was last night. Patient is alert and oriented x4 at this time. The patient is concerned about his symptoms and would like to be further evaluated and treated. 05/11: Patient's CIWA score feels well. Patient says he is compliant with his Keppra 500 mg twice daily, apparently diagnosed has a epileptic disorder but patient is unable to give me time last seen by neurologist also does not know the name of his primary neurologist. Concern for noncompliance and/or possible alcohol withdrawal seizure. Patient does endorse that he does drink every day, at admit patient had positive but alcohol and has been taking alcohol every day, we will have to monitor patient for 48 hours for seizure free see if protocol patient is A&O x4 but does appear to want to leave, possible chance patient will AMA. dx: 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, on anticonvulsant medical noncompliance etoh dependence plan: paitnet left AMA. assumed all risks including . Condition at Discharge: Undetermined Final Diagnosis/Problems List 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, on anticonvulsant medical noncompliance etoh dependence Discharge Disposition: AMA Discharge Instruct/Medications Scheduled Amoxicillin & Pot Clavulanate (Augmentin), 1 TAB PO BID Ibuprofen (Ibuprofen), 1 TAB PO TID Levetiracetam (Keppra), 1,000 MG PO BID Mupirocin Calcium (Topical) (Mupirocin), 1 APPLIC EX BID Scheduled PRN Acetaminophen (Acetaminophen), 500 MG PO Q8HP PRN Ibuprofen (Ibuprofen), 1 TAB PO TID PRN Ibuprofen (Ibuprofen), 1 TAB PO Q8HP PRN Discharge Statement: "Patient was advised to return to the ER or call 911 if any headaches, dizziness, shortness of breath, chest pain, abdominal pain, bleeding, fevers, or worsening of medical condition. Patient was counseled about treatment plan, medications, possible side effects, patientverbalized understanding. All questions were answered to the best of my ability. This discharge took greater then 30 minutes in planning, reviewing documentation, counseling the patient, and discussing with other team members." ASSESSMENT ASSESSMENT Assessment Date of Service: May 11, 2025 Billing Provider: MAGALI PRICE MD Common Visit Codes: NOT BILLABLE MAGALI PRICE MD May 11, 2025 20:22
[2025-05-12] MEDS ORDERED: THIAMINE HCL 100 MG TAB PO SCH (10:00)
[2025-05-12] MEDS ORDERED: FOLIC ACID 1 MG TAB PO SCH (10:00)
== END 2025-05-11 14:15 | disposition left against medical advice (07) | DRG 53 ==
LOC: ER 09:36 → EDBD 09:36 → OVERFLOW 12:03
PROVIDERS: ADMIT Student in an Organized Health Care Education/Training Program; ATTEND Student in an Organized Health Care Education/Training Program
DX: R56.9 Unspecified convulsions (principal); F10.229 Alcohol dependence with intoxication, unspecified; G40.909 Epilepsy, unspecified, not intractable, without status epilepticus; F10.239 Alcohol dependence with withdrawal, unspecified; Z53.29 Procedure and treatment not carried out because of patient's decision for other reasons; Z71.41 Alcohol abuse counseling and surveillance of alcoholic; Z79.899 Other long term (current) drug therapy; Z91.199 Patient's noncompliance with other medical treatment and regimen due to unspecified reason; Y90.9 Presence of alcohol in blood, level not specified
CPT/HCPCS: 36415; 80048; 80053; 80307; 80320; 82542; 82962; 83735; 85025; 96361; 96365; 96375; G0378

== ENCOUNTER 2025-05-25 13:00 | Emergency (ER) | payer MEDICAID ==
[~2025-05-25] VITALS: Ht 177.8 cm; Wt 74.0 kg
--- NOTE | 2025-05-25 13:14 | ED.PDOC ---
HPI (NEURO) HPI Comments This is a 24 year old male CHANTAL presenting to the ED with chief complaint of seizure. EMS reports patient was on his couch when he had experienced a seizure, but not witnessed as he was home alone, so unknown duration. EMS relays patient has history of seizures and takes Keppra daily. Patient states he had drank heavily last night. Patient notes that he is now experiencing neck pain at this time, EMS placing him in a C-Collar. Patient denies any oral laceration, incontinence, dizziness, headache, or head injury. Chief Complaint: Seizure Time Seen by MD: 13:10 Primary Care Provider: UNKNOWN Reviewed Notes: Nurses Notes, Diesel Machinist Notes, Medications, Allergies Information Source: Patient, Emergency Med Personnel Mode of Arrival: EMS Severity: Moderate Timing: Hours Duration: Since onset Prehospital treatment: None Seizure Quality: Tonic-clonic Seizure Location: Generalized Onset: At rest Symptoms: None Before: Normal During: LOC After: Normal Mentation History of: Seizure Disorder Past Medical History PAST MEDICAL HISTORY: Seizures Surgical History: Denies all surgeries Family History Family History: Reviewed,noncontributory to illness Family History (Other): Seizures Social History Smoker: Non-Smoker Alcohol: Heavy Drugs: Marijuana Lives In: Home Constitutional: denies: chills, diaphoresis, fatigue, fever, malaise, sweats, weakness, others EENTM: denies: blurred vision, double vision, ear bleeding, ear discharge, ear drainage, ear pain, ear ringing, eye pain, eye redness, hearing loss, mouth pain, mouth swelling, nasal discharge, nose bleeding, nose congestion, nose pain, photophobia, tearing, throat pain, throat swelling, voice changes, others Respiratory: denies: cough, hemoptysis, orthopnea, SOB at rest, shortness of breath, SOB with excertion, stridor, wheezing, others Cardiovascular: denies: chest pain, dizzy spells, diaphoresis, Dyspnea on exertion, edema, irregular heart beat, left arm pain, lightheadedness, palpitations, PND, syncope, others Gastrointestinal: denies: abdomen distended, abdominal pain, blood streaked bowels, constipated, diarrhea, dysphagia, difficulty swallowing, hematemesis, melena, nausea, poor appetite, poor fluid intake, rectal bleeding, rectal pain, vomiting, others Genitourinary: denies: burning, dysuria, flank pain, frequency, hematuria, incontinence, penile discharge, penile sore, pain, testicle pain, testicle swelling, urgency, others Neurological: reports: seizure; denies: dizziness, fainting, headache, left sided numbness, left sided weakness, numbness, paresthesia, pre-existing deficit, right sided numbness, right sided weakness, speech problems, tingling, tremors, weakness, others Musculoskeletal: reports: neck pain; denies: back pain, gout, joint pain, joint swelling, muscle pain, muscle stiffness, others Integumetry: denies: bruises, change in color, change in hair/nails, dryness, laceration, lesions, lumps, rash, wounds, others Allergic/Immunocompromised: denies: Difficulty Healing, Frequent Infections, Hives, Itching, others Hematologic/Lymphatic: denies: anemia, blood clots, easy bleeding, easy bruising, swollen glands, others Endocrine: denies: excessive hunger, excessive sweating, excessive thirst, excessive urination, flushing, intolerance to cold, intolerance to heat, unexplained weight gain, unexplained weight loss, others Psychiatric: denies: anxiety, bipolar disorder, depression, hopeless, panic disorder, schizophrenia, sleepless, suicidal, others All Other Systems: Reviewed and Negative Physical Exam General Appearance: No Apparent Distress, Normal HEENT: Normal ENT Inspection, Pharynx Normal, TMs Normal Neck: Full Range of Motion, Normal, Normal Inspection, Other (In C-Collar) Respiratory: Chest Non-Tender, Lungs Clear, No Accessory Muscle Use, No Respiratory Distress, Normal Breath Sounds Cardiovascular: No Edema, No JVD, No Murmur, No Gallop, Normal Peripheral Pulses, Regular Rate/Rhythm Breast Exam: Deferred Gastrointestinal: No Organomegaly, Non Tender, No Pulsatile Mass, Normal Bowel Sounds, Soft Genitalia: Deferred Pelvic: Deferred Rectal: Deferred Extremities: No calf tenderness, Normal capillary refill, Normal inspection, Normal range of motion, Non-tender, No pedal edema Musculoskeletal : Apperance: Normal 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 Was a procedure done?: No Differential Diagnosis (SZ) Seizure: Epilepsy-Break Through, Epilepsy-Status X-Ray, Labs, Meds, VS Vital Signs Date Time Temp Pulse Resp B/P (MAP) Pulse Ox O2 Delivery O2 Flow Rate FiO2 05/25/25 14:27 100 05/25/25 13:25 104 17 96 Room Air* 0 21 05/25/25 13:24 98.4 104 17 137/84 (101) 96 98.4 05/25/25 13:07 99.2 96 16 122/80 95 99.2 Lab Test 05/25/25 16:00 Range/Units Sodium Level 141 136-145 mmol/L Potassium Level 3.6 3.5-5.1 mmol/L Chloride Level 102 98-107 mmol/L Carbon Dioxide Level 25 20-31 mmol/L Anion Gap 14 5-15 Blood Urea Nitrogen 6 L 9-23 mg/dL Creatinine 0.90 0.700-1.30 mg/dL Glomerular Filtration Rate Calc 122 >90 mL/min BUN/Creatinine Ratio 6.7 L 10.0-20.0 Serum Glucose 87 74-106 mg/dL Calcium Level 9.1 8.7-10.4 mg/dL Plasma/Serum Blood Alcohol < 3.0 <10 mg/dL Time of 1ST Reevaluation: 14:09 Reevaluation 1ST: Unchanged Patient Education/Counseling: Diagnosis, Treatment Family Education/Counseling: No Family Present Comments Patient has been alert oriented resting comfortably without any seizures while he is here. His electrolytes are normal alcohol level is negative he is stable for discharge to follow up with his neurologist Additional Information Reviewed patient's previous visit(s): 05/10/25, 04/24/25, 04/08/25, 03/20/25, and 01/04/25 for seizures The following tests were ordered, and results were reviewed by me: Additional information was gathered from interviewing the following independent historian: EMS I reviewed and agreed with the following test results read by other provider: I discussed treatments and results with medical personnel and: PATIENT Comprehensive systems review obtained and negative except for what is stated in the HPI. Departure 1 Departure Time of Disposition: 16:40 Impression: Primary Impression: Breakthrough seizure Disposition: 01 HOME / SELF CARE / HOMELESS Condition: Good Discharged With: Self Critical Care Note Critical Care Time?: No Stability Stability form required: No Heart Score Heart Score: Heart Score Response (Comments) Value History N/A 0 EKG N/A 0 Age N/A 0 Risk Factors N/A 0 Troponin N/A 0 Total 0 I personally scribed for LUL GRULLON MD ([email or web address]) on 05/25/25 at 13:14. Electronically submitted by Luis Alberto Oliva ([email or web address]). LUL GRULLON MD May 25, 2025 13:14
[2025-05-25 13:24] VITALS: TEMP 98.4
[2025-05-25 13:25] VITALS: PULSE 104; RESP 17; O2SAT 96
[2025-05-25 16:17] LABS: Chloride 102 mmol/L (98-107); Potassium 3.6 mmol/L (3.5-5.1); Sodium 141 mmol/L (136-145)
[2025-05-25 16:18] LABS: Anion Gap 14 (5-15); Calcium 9.1 mg/dL (8.7-10.4); Carbon Dioxide 25 mmol/L (20-31)
[2025-05-25 16:23] LABS: BUN/Creatinine Ratio 6.7 (10.0-20.0); Glucose 87 mg/dL (74-106)
[2025-05-25 16:29] LABS: Blood Urea Nitrogen 6 mg/dL (9-23)
[2025-05-25 17:16] VITALS: BP 108/75; PULSE 94; RESP 17; O2SAT 98
== END 2025-05-25 17:50 | disposition home or self-care (01) ==
LOC: EDUNIT# 13:00 → EDBD 13:00 → ER 13:00
DX: G40.909 Epilepsy, unspecified, not intractable, without status epilepticus (principal); Z79.899 Other long term (current) drug therapy
CPT/HCPCS: 36415; 80048; 80320